=== PATIENT | female | born 1940 | race Caucasian/White ===

== ENCOUNTER 2020-02-15 11:32 | Outpatient (CLI) | payer MEDICARE, SELFPAY ==
--- NOTE | ~2020-02-15 | MM_ITS ---
EXAMINATION: MM screening [facility] w angela HISTORY: Screening mammogram TECHNIQUE: Craniocaudal and mediolateral oblique 3-D tomosynthesis images were obtained and synthetic 2-D images were generated. CAD analysis was submitted and interpreted. COMPARISON: 02/21/2018, 02/19/2017, 02/18/2016 bilateral digital screening mammogram examinations BREAST PARENCHYMAL COMPOSITION: There are scattered areas of fibroglandular density. FINDINGS: There is no evidence of suspicious mass, calcification, or architectural distortion to sugg est malignancy in either breast. There has been no suspicious interval change. IMPRESSION: 1. No mammographic evidence of malignancy. 2. Recommend routine screening mammography in one year. BI-RADS Category 1: Negative Reviewed, dictated and finalized at location A. 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
== END 2020-02-15 11:33 | disposition home or self-care (01) ==
PROVIDERS: PCP Internal Medicine; Visit Provider Internal Medicine
DX: Z12.31 Encounter for screening mammogram for malignant neoplasm of breast (principal)
CPT/HCPCS: 77063; 77067

== ENCOUNTER → 2021-03-24 15:02 | Outpatient (CLI) | payer MEDICARE, SELFPAY ==
--- NOTE | ~2021-03-24 | MM_ITS ---
EXAMINATION: MM screening [facility] BI w angela HISTORY: Screening mammogram TECHNIQUE: Craniocaudal and mediolateral oblique 3-D tomosynthesis images were obtained and synthetic 2-D images were generated. CAD analysis was submitted and interpreted. COMPARISON: 02/15/2020, 02/21/2018, 02/19/2017 BREAST PARENCHYMAL COMPOSITION: There are scattered areas of fibroglandular density. FINDINGS: There is no evidence of suspicious mass, calcification, or architectural distortion to sugg est malignancy in either breast. There has been no suspicious interval change. IMPRESSION: 1. No mammographic evidence of malignancy. 2. Recommend routine screening mammography in one year. BI-RADS Category 1: Negative Reviewed, dictated and finalized at location A. TREADER
== END ==
PROVIDERS: PCP Internal Medicine; Visit Provider Internal Medicine
DX: Z12.31 Encounter for screening mammogram for malignant neoplasm of breast (principal)
CPT/HCPCS: 77063; 77067

== ENCOUNTER → 2022-04-06 13:57 | Outpatient (CLI) | payer MEDICARE, SELFPAY ==
--- NOTE | ~2022-04-06 | MM_ITS ---
EXAMINATION: MM screening [facility] BI w angela HISTORY: Screening mammogram TECHNIQUE: Craniocaudal and mediolateral oblique 3-D tomosynthesis images were obtained and synthetic 2-D images were generated. CAD analysis was submitted and interpreted. COMPARISON: 03/24/2021, 02/15/2020, 02/21/2018 BREAST PARENCHYMAL COMPOSITION: There are scattered areas of fibroglandular density. FINDINGS: No suspicious mass, calcification, or architectural distortion are identified in either brenda ast to suggest malignancy. There has been no suspicious interval change. IMPRESSION: 1. No mammographic evidence of malignancy. 2. Recommend routine screening mammography in one year. BI-RADS Category 1: Negative Reviewed, dictated and finalized at location A. 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
== END ==
PROVIDERS: PCP Internal Medicine; Visit Provider Internal Medicine
DX: Z12.31 Encounter for screening mammogram for malignant neoplasm of breast (principal)
CPT/HCPCS: 77063; 77067

== ENCOUNTER 2022-11-15 12:28 | Emergency (ER) | payer MEDICARE, SELFPAY ==
--- NOTE | ~2022-11-15 | XR_ITS ---
XR ribs RT 2V DATE: 11/15/2022 12:59 INDICATION: Right lower rib injury, abdominal bruising TECHNIQUE: 4 views of right ribs COMPARISON: None FINDINGS: No right rib fracture or bone destruction is detected. The right lung is clear. No right pneumothorax or pleural effusion. Aortic arch calcification is note d. Status post cholecystectomy. IMPRESSION: No right rib fracture is noted Reviewed, dictated and finalized at location B.
[2022-11-15 12:42] VITALS: BP 106/48; PULSE 75; RESP 16; TEMP 37.1; O2SAT 100
--- NOTE | 2022-11-15 12:50 | ED.FALL ---
HPI - Fall General Chief Complaint: Back Pain/Injury Stated Complaint: Right Side Body Pain Time Seen by Provider: 11/15/22 12:33 Source: patient Mode of arrival: ambulatory Limitations: no limitations History of Present Illness HPI Narrative: Tanisha is an 81-year-old female patient presenting to the clinic today with complaints of right-sided rib pain/abdominal wall pain. She reports that she fell on Tuesday evening and landed on the tongue of a boat trailer. Has pain and bruising over the right lower ribs and the right upper abdomen. She is on Eliquis. She denies hitting her head or any loss of consciousness. She denies any neck pain. Related Data Home Medications Medication Instructions Recorded Confirmed amlodipine 10 mg tablet 10 mg PO DAILY 11/15/22 11/15/22 apixaban 5 mg tablet (Eliquis) 5 mg PO BID 11/15/22 11/15/22 carvedilol 6.25 mg tablet 6.25 mg PO DAILY 11/15/22 11/15/22 furosemide 20 mg tablet 20 mg PO DAILY 11/15/22 11/15/22 irbesartan 300 1 tablet PO DAILY 11/15/22 11/15/22 mg-hydrochlorothiazide 12.5 mg tablet levothyroxine 100 mcg tablet 100 mcg PO DAILY 11/15/22 11/15/22 rosuvastatin 40 mg tablet 40 mg PO DAILY 11/15/22 11/15/22 Allergies Allergy/AdvReac Type Severity Reaction Status Date / Time 1.PCN2.SULFA3.CLEOCIN4.DECLOMYCIN Allergy Unknown Other Uncoded 11/15/22 12:45 Review of Systems Review of Systems: Pertinent positives per HPI. Patient denies any fever, chills, rash, headache, visual changes, dizziness, cough, runny nose, sore throat, shortness of breath, chest pain, palpitations, nausea, vomiting, diarrhea, constipation, abdominal pain, or any urinary issues. PMFSH Comments At the time of my signature, I reviewed and agree with the nursing past medical, surgical, social, and family history. There is no relevant family history pertinent to the patient complaint. Exam Narrative: General: Well-developed, well nourished, in no apparent distress Head: Normocephalic, atraumatic. Cardio: Regular rate and rhythm, s1 and s2 normal, no murmur appreciated. Resp: Clear to auscultation bilaterally, no rhonchi, rales, wheezing or rubs. Extremities: No deformity, no edema, no cyanosis, capillary refill less than 2 seconds, peripheral pulses palpable and strong. Integumentary: [place], warm, and dry, hematoma with old bruising noted to the right upper abdomen, old bruising noted over the right lower ribs with discomfort to palpation without obvious step-off deformity Course Course Emergency Course: Portions of this record may have been created with voice recognition software. Level of Care: Express Care Visit Vital Signs Vital signs: Vital Signs Temperature 37.1 C 11/15/22 12:42 Pulse Rate 75 11/15/22 12:42 Respiratory Rate 16 11/15/22 12:42 Blood Pressure 106/48 L 11/15/22 12:42 Pulse Oximetry 100 11/15/22 12:42 Oxygen Delivery Room Air 11/15/22 12:42 Temperature 37.1 C 11/15/22 12:42 Pulse Rate 75 11/15/22 12:42 Respiratory Rate 16 11/15/22 12:42 Blood Pressure 106/48 L 11/15/22 12:42 Pulse Oximetry 100 11/15/22 12:42 Oxygen Delivery Room Air 11/15/22 12:42 Vital signs reviewed MDM - Fall MDM Narrative Medical decision making narrative: At the time of visit patient is resting comfortably on exam table. I suspect patient has a hematoma and right rib contusion. X-ray of the right ribs was negative. Supportive measures were discussed with the patient she voiced understanding discharge instructions and agrees to treatment plan. Differential Diagnosis Differential diagnosis: Likely other (Rib contusion, rib fracture, hematoma, ecchymosis) Discharge Plan Discharge Clinical Impression: Hematoma of abdominal wall Qualifiers: Encounter type: initial encounter Qualified Code(s): S30.1XXA - Contusion of abdominal wall, initial encounter Contusion of rib on right side Qualifiers: Encounter type: initial encounter Qualified
== END 2022-11-15 13:50 | disposition home or self-care (01) ==
PROVIDERS: Emergency Provider Nurse Practitioner Family; PCP Internal Medicine
DX: S30.1XXA Contusion of abdominal wall, initial encounter (principal); S20.211A Contusion of right front wall of thorax, initial encounter; W19.XXXA Unspecified fall, initial encounter; I48.91 Unspecified atrial fibrillation; E78.00 Pure hypercholesterolemia, unspecified; I10 Essential (primary) hypertension; K21.9 Gastro-esophageal reflux disease without esophagitis; E03.9 Hypothyroidism, unspecified; Q24.9 Congenital malformation of heart, unspecified
CPT/HCPCS: 71100; 99213; G0463

== ENCOUNTER 2022-11-20 13:09 | Emergency (ER) | payer MEDICARE, SELFPAY ==
[2022-11-20 13:32] VITALS: BP 114/36; PULSE 68; RESP 12; TEMP 37; O2SAT 100
--- NOTE | 2022-11-20 14:06 | ED.FEMALEGU ---
HPI - Female Genitourinary General Chief complaint: Urogenital-Female Stated complaint: UTI Time Seen by Provider: 11/20/22 14:06 Source: patient, RN notes reviewed and old records reviewed Mode of arrival: ambulatory Limitations: no limitations History of Present Illness HPI Narrative: 82-year-old female who presents to [facility] with complaints urinary tract infection symptoms of burning with urination, urgency and frequency for the past 3 days. Patient reports that she has history of past UTI;s. Patient reports that her doctor gives her a medication that starts with letter C that usually takes care of her symptoms. Patient reports that she has taken some AZO for her symptoms.Patient denies any fevers, chills or body aches, has not experienced any nausea or vomiting denies any vaginal discharge or itching. MD elicited complaint: UTI Pertinent past history: other (pat UTI's) Onset (ago): day(s) (3) Location of symptoms: perineum Severity: moderate Quality of pain: burning Vaginal discharge: none Treatment prior to arrival: OTC urinary analgesics Related Data Home Medications Medication Instructions Recorded Confirmed amlodipine 10 mg tablet 10 mg PO DAILY 11/15/22 11/15/22 apixaban 5 mg tablet (Eliquis) 5 mg PO BID 11/15/22 11/15/22 carvedilol 6.25 mg tablet 6.25 mg PO DAILY 11/15/22 11/15/22 furosemide 20 mg tablet 20 mg PO DAILY 11/15/22 11/15/22 irbesartan 300 1 tablet PO DAILY 11/15/22 11/15/22 mg-hydrochlorothiazide 12.5 mg tablet levothyroxine 100 mcg tablet 100 mcg PO DAILY 11/15/22 11/15/22 rosuvastatin 40 mg tablet 40 mg PO DAILY 11/15/22 11/15/22 Allergies Allergy/AdvReac Type Severity Reaction Status Date / Time ciprofloxacin [From Cipro] Allergy Other Verified 11/20/22 14:13 1.PCN2.SULFA3.CLEOCIN4.DECLOMYCIN Allergy Unknown Other Uncoded 11/15/22 12:45 Review of Systems Review of Systems: CONSTITUTIONAL: Denies fever, chills, or sweats. CARDIOVASCULAR: Denies chest pain, palpitations, or edema. RESPIRATORY: Denies cough or dyspnea. GASTROINTESTINAL: Denies abdominal pain, nausea, vomiting, or diarrhea. GENITOURINARY: Reports dysuria, frequency, urgency. Denies flank pain or hematuria. SKIN: Denies rash or itching. MUSCULOSKELETAL: Denies back pain or myalgia. Denies CVA tenderness NEUROLOGIC: Denies headache All systems reviewed & are unremarkable except as noted in HPI and below PMFSH Past Medical History Medical History (Updated 11/22/22 @ 10:54 by Chani Sandoval NP) Arthritis Atrial fibrillation CAD (coronary artery disease) GERD (gastroesophageal reflux disease) Hyperlipidemia Hypertension Hypothyroidism Spinal stenosis Urinary tract infection Surgical History Surgical History (Updated 11/22/22 @ 10:53 by Chani Sandoval NP) H/O arthroscopy of right knee History of hysterectomy History of tonsillectomy Social History Social History (Updated 11/22/22 @ 10:55 by Chani Sandoval NP) Smoking status: Never smoker Alcohol intake: never Substance use: never Substance use type: does not use Occupation/Education: retired Gender identity (if verbalized by the patient): Female Comments At time of signature, agree with nursing past medical, surgical, social and family history. There is no relevant family history pertinent to the presenting complaint Exam Narrative: GENERAL: Well-appearing, well-nourished, and in no acute distress. HEAD: Normocephalic, atraumatic. NECK: Supple.no lymphadenopathy CHEST: Clear to auscultation. No respiratory distress.SAO2 100% on room air HEART: Regular rate and rhythm. No murmur heard. Normal peripheral pulses. ABDOMEN: Soft, nontender to palpation, nondistended, normal active bowel sounds. No CVA tenderness, urinary burning with urgency and frequency EXTREMITIES: Normal range of motion. No edema. SKIN: Warm, dry, no rash. NEURO: No focal deficits. Alert and oriented x3. Course Course Emergency Course: Trudy
== END 2022-11-20 14:25 | disposition home or self-care (01) ==
PROVIDERS: Emergency Provider Registered Nurse; PCP Internal Medicine
DX: N39.0 Urinary tract infection, site not specified (principal); B96.20 Unspecified Escherichia coli [E. coli] as the cause of diseases classified elsewhere; M19.90 Unspecified osteoarthritis, unspecified site; I48.91 Unspecified atrial fibrillation; I25.10 Atherosclerotic heart disease of native coronary artery without angina pectoris; K21.9 Gastro-esophageal reflux disease without esophagitis; E78.5 Hyperlipidemia, unspecified; I10 Essential (primary) hypertension; E03.9 Hypothyroidism, unspecified; M48.00 Spinal stenosis, site unspecified
CPT/HCPCS: 81003; 87077; 87086; 87186; 99213; G0463

== ENCOUNTER 2023-02-17 11:37 | Emergency (ER) | payer MEDICARE, SELFPAY ==
--- NOTE | 2023-02-17 11:40 | ED.EYEPROB ---
HPI - Eye Problem General Chief complaint: Eye Problems Stated complaint: Right Eye Irritation Time Seen by Provider: 02/17/23 11:39 Source: patient Mode of arrival: ambulatory Limitations: no limitations History of Present Illness HPI Narrative: Patient is an 82-year-old female that presents with right eye irritation for 2 days. Patient states she feels like she scratched her eye and her sleep. Does have history of macular degeneration and her right eye has chronically dry. Denies any pain or changes in vision. Related Data Home Medications Medication Instructions Recorded Confirmed amlodipine 10 mg tablet 10 mg PO DAILY 11/15/22 02/17/23 apixaban 5 mg tablet (Eliquis) 5 mg PO BID 11/15/22 02/17/23 carvedilol 6.25 mg tablet 6.25 mg PO DAILY 11/15/22 02/17/23 furosemide 20 mg tablet 20 mg PO DAILY 11/15/22 02/17/23 irbesartan 300 1 tablet PO DAILY 11/15/22 02/17/23 mg-hydrochlorothiazide 12.5 mg tablet levothyroxine 100 mcg tablet 100 mcg PO DAILY 11/15/22 02/17/23 rosuvastatin 40 mg tablet 40 mg PO DAILY 11/15/22 02/17/23 Allergies Allergy/AdvReac Type Severity Reaction Status Date / Time ciprofloxacin [From Cipro] Allergy Other Verified 02/17/23 11:55 clindamycin [From Cleocin] Allergy Unknown Verified 02/17/23 12:11 demeclocycline Allergy Unknown Verified 02/17/23 12:11 [From Declomycin] Penicillins Allergy Unknown Verified 02/17/23 12:11 Sulfa (Sulfonamide Allergy Unknown Verified 02/17/23 12:11 Antibiotics) Review of Systems Review of Systems: All systems reviewed & are unremarkable except as noted in HPI and below Constitutional: Constitutional: Denies body ache(s), Denies fever(s), Denies headache(s), Denies malaise and Denies weakness Eyes: Eyes: Denies blurry vision, Denies eye discharge, Reports irritation, Denies itchy eyes, Denies loss of vision and Denies eye pain ENT: Denies otalgia, Denies headache(s), Denies nasal discharge, Denies sinus pain and Denies sore throat Cardiovascular: Cardiovascular: Denies chest pain, Denies irregular heart rhythm and Denies dyspnea Respiratory: Respiratory: Denies dyspnea Gastrointestinal: Gastrointestinal: Denies abdominal pain, Denies diarrhea, Denies nausea and Denies vomiting Musculoskeletal: Musculoskeletal: Denies back pain, Denies myalgias and Denies arthralgias Integumentary/Breasts: Skin/Breast: Denies pruritus and Denies rash Neurologic: Denies headache(s), Denies loss of vision and Denies weakness Psychiatric: Psychiatric: Reports no additional psychiatric complaints Allergic/Immunologic: Allergic/Immunologic: Reports itchy eyes PMFSH Past Medical History Medical History Arthritis Atrial fibrillation CAD (coronary artery disease) GERD (gastroesophageal reflux disease) Hyperlipidemia Hypertension Hypothyroidism Spinal stenosis Urinary tract infection Surgical History Surgical History H/O arthroscopy of right knee History of hysterectomy History of tonsillectomy Social History Social History Smoking status: Never smoker Alcohol intake: never Substance use: never Substance use type: does not use Occupation/Education: retired Gender identity (if verbalized by the patient): Female Comments At time of signature, agree with nursing past medical, surgical, social and family history. There is no relevant family history pertinent to the presenting complaint. Exam Const: General: cooperative, healthy appearing, comfortable, no acute distress and well nourished Nutritional Appearance: well nourished Orientation/consciousness: patient oriented x3 Limitations: no limitations HENMT: Head: normal to inspection, normocephalic and atraumatic Ears: external ears normal Face/Nose/Sinus: Normal external nose present, normal facial exam and face symmetr
[2023-02-17 11:50] VITALS: BP 144/51; PULSE 67; RESP 14; TEMP 36.8; O2SAT 99
== END 2023-02-17 12:42 | disposition home or self-care (01) ==
PROVIDERS: Emergency Provider Nurse Practitioner Family; PCP Internal Medicine
DX: H57.11 Ocular pain, right eye (principal); M19.90 Unspecified osteoarthritis, unspecified site; I48.91 Unspecified atrial fibrillation; I25.10 Atherosclerotic heart disease of native coronary artery without angina pectoris; K21.9 Gastro-esophageal reflux disease without esophagitis; E78.5 Hyperlipidemia, unspecified; I10 Essential (primary) hypertension; E03.9 Hypothyroidism, unspecified; M48.00 Spinal stenosis, site unspecified; Z79.01 Long term (current) use of anticoagulants
CPT/HCPCS: 99213; A9270; G0463

== ENCOUNTER 2023-03-15 08:33 | Emergency (ER) | payer MEDICARE, SELFPAY ==
[2023-03-15 08:53] VITALS: BP 138/43; PULSE 70; RESP 16; TEMP 36.6; O2SAT 99
--- NOTE | 2023-03-15 08:56 | ED.FEMALEGU ---
HPI - Female Genitourinary General Chief complaint: Urogenital-Female Stated complaint: urinary issue Time Seen by Provider: 03/15/23 08:56 Source: patient Mode of arrival: ambulatory Limitations: no limitations History of Present Illness HPI Narrative: 82-year-old female presents with complaint of dysuria, urgency for 3 days. Symptoms getting progressively worse, hematuria overnight. No back or abdominal pain. Denies nausea vomiting. No fever. All systems reviewed and negative except as noted above. Related Data Home Medications Medication Instructions Recorded Confirmed amlodipine 10 mg tablet 10 mg PO DAILY 11/15/22 03/15/23 apixaban 5 mg tablet (Eliquis) 5 mg PO BID 11/15/22 03/15/23 carvedilol 6.25 mg tablet 6.25 mg PO DAILY 11/15/22 03/15/23 furosemide 20 mg tablet 20 mg PO DAILY 11/15/22 03/15/23 irbesartan 300 1 tablet PO DAILY 11/15/22 03/15/23 mg-hydrochlorothiazide 12.5 mg tablet levothyroxine 100 mcg tablet 100 mcg PO DAILY 11/15/22 03/15/23 rosuvastatin 40 mg tablet 40 mg PO DAILY 11/15/22 03/15/23 Allergies Allergy/AdvReac Type Severity Reaction Status Date / Time ciprofloxacin [From Cipro] Allergy Other Verified 03/15/23 08:55 clindamycin [From Cleocin] Allergy Unknown Verified 03/15/23 08:55 demeclocycline Allergy Unknown Verified 03/15/23 08:55 [From Declomycin] Penicillins Allergy Unknown Verified 03/15/23 08:55 Sulfa (Sulfonamide Allergy Unknown Verified 03/15/23 08:55 Antibiotics) Review of Systems Review of Systems: CONSTITUTIONAL: Denies fever, chills, or sweats. EYES: Denies visual changes, redness, or discharge. ENT: Denies rhinorrhea, congestion, sore throat, or otalgia. CARDIOVASCULAR: Denies chest pain, palpitations, or edema. RESPIRATORY: Denies cough or dyspnea. GASTROINTESTINAL: Denies abdominal pain, nausea, vomiting, or diarrhea. GENITOURINARY: Reports dysuria, urgency, hematuria. SKIN: Denies rash or itching. MUSCULOSKELETAL: Denies back pain, joint pain, or myalgia. NEUROLOGIC: Denies headache, numbness, or weakness. PSYCHIATRIC: Denies anxiety or depression. All other systems reviewed are negative, except as documented in HPI. [facility] Past Medical History Medical History Arthritis Atrial fibrillation CAD (coronary artery disease) GERD (gastroesophageal reflux disease) Hyperlipidemia Hypertension Hypothyroidism Spinal stenosis Urinary tract infection Surgical History Surgical History H/O arthroscopy of right knee History of hysterectomy History of tonsillectomy Social History Social History Smoking status: Never smoker Alcohol intake: never Substance use: never Substance use type: does not use Occupation/Education: retired Gender identity (if verbalized by the patient): Female Comments At time of signature, agree with nursing past medical, surgical, social and family history. There is no relevant family history pertinent to the presenting complaint. Exam Narrative: GENERAL: This is a well-nourished, well-developed patient, in no apparent distress. HEAD: normocephalic, atraumatic. EYES: PERRL. Sclera clear/white. Vision is grossly intact. EARS: External ears normal NOSE: External nose normal NECK: Neck supple, non-tender without lymphadenopathy, masses or thyromegaly. CARDIOVASCULAR: Regular rate and rhythm without murmurs, gallops, or rubs. RESPIRATORY: Clear to auscultation. Breath sounds equal bilaterally. No wheezes, rales, or rhonchi. SKIN: warm, Dry, intact with no suspicious lesions or rash, good texture and turgor. NEURO: awake, alert, and oriented to person, place and time. There were no obvious focal neurologic abnormalities. EXTREMITIES: No joint tenderness, effusion, or edema noted. No calf tenderness. Negative Homans sign bilaterally.
== END 2023-03-15 09:20 | disposition home or self-care (01) ==
PROVIDERS: Emergency Provider Nurse Practitioner Family; PCP Internal Medicine
DX: N39.0 Urinary tract infection, site not specified (principal); I25.10 Atherosclerotic heart disease of native coronary artery without angina pectoris; I48.91 Unspecified atrial fibrillation; I10 Essential (primary) hypertension; E03.9 Hypothyroidism, unspecified
CPT/HCPCS: 81003; 87077; 87086; 87186; 99213; G0463

== ENCOUNTER 2023-04-14 09:48 | Emergency (ER) | payer MEDICARE, SELFPAY ==
[2023-04-14 10:15] VITALS: BP 140/44; PULSE 70; RESP 14; TEMP 36.2; O2SAT 100
--- NOTE | 2023-04-14 10:36 | ED.GENADULT ---
HPI - General Adult General Chief complaint: Urogenital-Female Stated complaint: UTI Source: patient, RN notes reviewed and old records reviewed Mode of arrival: ambulatory Limitations: no limitations History of Present Illness HPI narrative: 82-year-old female presents to [facility] with complaints urinary frequency, constant feeling of bladder being full, and hematuria this started in February. Patient seen here in March 15 and diagnosed with UTI patient states took antibiotics and followed up with primary care physician who told her urine was clear. Patient states symptoms have never completely resolved. MD complaint: uti symptoms Onset (ago): week(s) (4) Related Data Home Medications Medication Instructions Recorded Confirmed amlodipine 10 mg tablet 10 mg PO DAILY 11/15/22 04/14/23 apixaban 5 mg tablet (Eliquis) 5 mg PO BID 11/15/22 04/14/23 carvedilol 6.25 mg tablet 6.25 mg PO DAILY 11/15/22 04/14/23 furosemide 20 mg tablet 20 mg PO DAILY 11/15/22 04/14/23 levothyroxine 100 mcg tablet 100 mcg PO DAILY 11/15/22 04/14/23 rosuvastatin 40 mg tablet 40 mg PO DAILY 11/15/22 04/14/23 irbesartan 150 mg tablet 150 mg PO DAILY 04/14/23 04/14/23 Allergies Allergy/AdvReac Type Severity Reaction Status Date / Time ciprofloxacin [From Cipro] Allergy Other Verified 04/14/23 10:25 clindamycin [From Cleocin] Allergy Unknown Verified 04/14/23 10:25 demeclocycline Allergy Unknown Verified 04/14/23 10:25 [From Declomycin] Penicillins Allergy Unknown Verified 04/14/23 10:25 Sulfa (Sulfonamide Allergy Unknown Verified 04/14/23 10:25 Antibiotics) Review of Systems Constitutional: Constitutional: Reports no additional constitutional complaints, Denies body ache(s), Denies chills, Denies fatigue, Denies fever(s) and Denies headache(s) Eyes: Eyes: Reports no additional eye complaints and Denies blurry vision ENT: Reports system reviewed and no additional complaints, except as documented, Denies vertigo, Denies dizziness, Denies ear discharge, Denies otalgia, Denies facial pain, Denies headache(s), Denies nasal congestion, Denies nasal discharge, Denies sinus pain, Denies sinus pressure and Denies sore throat Cardiovascular: Cardiovascular: Reports no additional cardiovascular complaints, Denies chest pain, Denies chest pain at rest, Denies rapid heart rate and Denies dyspnea Respiratory: Respiratory: Reports no additional respiratory complaints, Denies chest congestion, Denies cough, Denies pain on inspiration, Denies pain with cough and Denies dyspnea Gastrointestinal: Gastrointestinal: Denies abdominal pain, Denies diarrhea, Denies nausea and Denies vomiting Genitourinary: Genitourinary: Reports hematuria, Reports nocturia and Reports urinary urgency Integumentary/Breasts: Skin/Breast: Denies rash Neurologic: Reports system reviewed and no additional complaints, except as documented, Denies vertigo, Denies dizziness and Denies headache(s) Endocrine: Endocrine: Denies fatigue [facility] Past Medical History Medical History Arthritis Atrial fibrillation CAD (coronary artery disease) GERD (gastroesophageal reflux disease) Hyperlipidemia Hypertension Hypothyroidism Spinal stenosis Urinary tract infection Surgical History Surgical History H/O arthroscopy of right knee History of hysterectomy History of tonsillectomy Social History Social History Smoking status: Never smoker Alcohol intake: never Substance use: never Substance use type: does not use Occupation/Education: retired Gender identity (if verbalized by the patient): Female Comments At the time of my signature, I reviewed and agree with the nursing past medical, surgical, social, and family history. There is no relevant family history pertinent to the patient complaint. Ex
== END 2023-04-14 10:50 | disposition home or self-care (01) ==
PROVIDERS: Emergency Provider Registered Nurse; PCP Internal Medicine
DX: N30.01 Acute cystitis with hematuria (principal); I25.10 Atherosclerotic heart disease of native coronary artery without angina pectoris; E78.5 Hyperlipidemia, unspecified; I10 Essential (primary) hypertension; I48.91 Unspecified atrial fibrillation; Z79.01 Long term (current) use of anticoagulants; Z79.899 Other long term (current) drug therapy
CPT/HCPCS: 81003; 87077; 87086; 87186; 99213; G0463

== ENCOUNTER → 2023-04-27 13:39 | Outpatient (CLI) | payer MEDICARE, SELFPAY ==
--- NOTE | ~2023-04-27 | MM_ITS ---
EXAMINATION: MM screening [facility] BI w angela HISTORY: Screening mammogram TECHNIQUE: Craniocaudal and mediolateral oblique 3-D tomosynthesis images were obtained and synthetic 2-D images were generated. CAD analysis was submitted and interpreted. COMPARISON: 04/06/2022, 03/2021, 02/15/2020 bilateral screening mammogram examinations BREAST PARENCHYMAL COMPOSITION: There are scattered areas of fibroglandular density. FINDINGS: There is no evidence of suspicious mass, calcification, or architectural distortion to sugg est malignancy in either breast. There has been no suspicious interval change. IMPRESSION: 1. No mammographic evidence of malignancy. 2. Recommend routine screening mammography in one year. BI-RADS Category 1: Negative Reviewed, dictated and finalized at location A. [facility]
== END ==
PROVIDERS: PCP Internal Medicine; Visit Provider Internal Medicine
DX: Z12.31 Encounter for screening mammogram for malignant neoplasm of breast (principal)
CPT/HCPCS: 77063; 77067

== ENCOUNTER 2024-03-16 08:22 | Emergency (ER) | payer MEDICARE, SELFPAY ==
--- NOTE | 2024-03-16 08:35 | ED.FEMALEGU ---
HPI - Female Genitourinary General Chief complaint: Urogenital-Female Stated complaint: UTI Time Seen by Provider: 03/16/24 08:35 Source: patient Mode of arrival: ambulatory Limitations: no limitations History of Present Illness HPI Narrative: Tanisha is an 83-year-old female patient presenting to the clinic today with complaints of a possible UTI. She reports she is having burning with urination that started approximately 1 week ago. Thinks she may have a urinary tract infection. Last urinary tract infection was in March. She does see a urologist and has a scheduled appointment September. She denies any fevers, chills, flank pain or abdominal pain. Related Data Home Medications ?Medication ?Instructions ?Recorded ?Confirmed ?Last Taken ?Type amlodipine 10 mg tablet 10 mg PO DAILY 11/15/22 04/14/23 Unknown History apixaban 5 mg tablet (Eliquis) 5 mg PO BID 11/15/22 04/14/23 Unknown History carvedilol 6.25 mg tablet 6.25 mg PO DAILY 11/15/22 04/14/23 Unknown History furosemide 20 mg tablet 20 mg PO DAILY 11/15/22 04/14/23 Unknown History levothyroxine 100 mcg tablet 100 mcg PO DAILY 11/15/22 04/14/23 Unknown History rosuvastatin 40 mg tablet 40 mg PO DAILY 11/15/22 04/14/23 Unknown History irbesartan 150 mg tablet 150 mg PO DAILY 04/14/23 04/14/23 Unknown History Allergies Allergy/AdvReac Type Severity Reaction Status Date / Time ciprofloxacin (From Cipro) Allergy Other Verified 03/16/24 08:37 clindamycin (From Cleocin) Allergy Unknown Verified 03/16/24 08:37 demeclocycline (From Allergy Unknown Verified 03/16/24 08:37 Declomycin) Penicillins Allergy Unknown Verified 03/16/24 08:37 Sulfa (Sulfonamide Allergy Unknown Verified 03/16/24 08:37 Antibiotics) Review of Systems Review of Systems: Pertinent positives per HPI. Patient denies any fever, chills, rash, headache, visual changes, dizziness, cough, runny nose, sore throat, shortness of breath, chest pain, palpitations, nausea, vomiting, diarrhea, constipation, abdominal pain PMFSH Past Medical History Medical History CAD (coronary artery disease) Arthritis Spinal stenosis Hypothyroidism GERD (gastroesophageal reflux disease) Hyperlipidemia Hypertension Atrial fibrillation Urinary tract infection Surgical History Surgical History H/O arthroscopy of right knee History of hysterectomy History of tonsillectomy Social History Social History Smoking status: Never smoker Alcohol intake: never Substance use: never Substance use type: does not use Occupation/Education: retired Gender identity (if verbalized by the patient): Female Comments At the time of my signature, I reviewed and agree with the nursing past medical, surgical, social, and family history. There is no relevant family history pertinent to the patient complaint. Exam Narrative: General: Well-developed, well nourished, in no apparent distress. Head: Normocephalic, atraumatic. Cardio: Regular rate and rhythm, s1 and s2 normal, no murmur appreciated. Resp: Clear to auscultation bilaterally, no rhonchi, rales, wheezing or rubs. Abdomen: Soft, pliable, bowel sounds present in all quadrants, non-tender to palpation, no organomegly, no CVAT tenderness. Course Course Emergency Course: Portions of this record may have been created with voice recognition software. Level of Care: Express Care Visit Vital Signs Vital signs: Vital signs reviewed MDM - Female Genitourinary MDM Narrative Medical decision making narrative: At the time of visit patient is resting comfortably on the exam table. Patient appears to be nontoxic. Labs: Urinalysis shows leukocytes, blood, nitrates, and protein. We will send for culture. Plan: Patient has multiple drug allergies. Past urine cultures have been sensitive to Macrobid. Will place the patient on Macrobid as patient has a UTI. Supportive measures were discussed with the patient and they voiced understanding discharge instructions and agrees to treatment plan. Return precautions reviewed Differential Diagnosis Differential diagnosis: Likely urinary tract infection and cystitis Discharge Plan Discharge Clinical Impression: Urinary tract infection Qualifiers: Urinary tract infection type: acute cystitis Hematuria presence: without hematuria Qualified Code(s): N30.00 - Acute cystitis without hematuria Patient Disposition: Home, Self-Care Condition: Stable Instructions: Antibiotic Form, Urinary Tract Infection in Older Adults (ED) Additional Instructions: Urinalysis positive for leukocytes, nitrates, protein, and blood. Take Macrobid as prescribed Increase fluids and stay well hydrated Wipe front to back. May use wet wipes. Avoid tub baths If sexually active- pee before and after intercourse. Wear cotton panties Avoid tight clothing up against the genitals Follow up with your PCP in 1 week if symptoms persist. Patient Language: Nepali Prescriptions: New nitrofurantoin monohyd/m-cryst [Macrobid] 100 mg capsule 100 mg PO Q12H 7 Days Qty: 14 0RF Rx Instructions: must administer with a meal/food No Action carvedilol 6.25 mg tablet 6.25 mg PO DAILY levothyroxine 100 mcg tablet 100 mcg PO DAILY amlodipine 10 mg tablet 10 mg PO DAILY furosemide 20 mg tablet 20 mg PO DAILY rosuvastatin 40 mg tablet 40 mg PO DAILY Eliquis 5 mg tablet 5 mg PO BID irbesartan 150 mg tablet 150 mg PO DAILY cefuroxime axetil 500 mg tablet 500 mg PO BID Qty: 14 0RF phenazopyridine [Pyridium] 200 mg tablet 200 mg PO TID PRN (Reason: pain) Qty: 6 0RF cefuroxime axetil 500 mg tablet 500 mg PO BID 7 Days Qty: 14 0RF Follow-up/Referrals: Jaison,Barrett Schuster MD [Primary Care Provider] - Time of Disposition: 08:50 Quality NIHSS Nursing Documentation ED NIHSS nursing documentation: reviewed/agree
[2024-03-16 08:50] VITALS: BP 149/77; PULSE 75; RESP 16; TEMP 36.7; O2SAT 99
[2024-03-16 08:51] LABS: EDUAAPPEAR Cloudy; EDUABILI Negative (Negative); EDUABLOOD 3+ (Negative); EDUACOLOR1 Yellow; EDUAGLUCOSE Negative (Negative); EDUAKETONE Negative (Negative); EDUALEUKO 2+ (Negative); EDUANITRATE Positive (Negative); EDUAPROTEIN 3+ (Negative); EDUASPGRAVITY 1.025; EDUAUROBILI 0.2
== END 2024-03-16 08:55 | disposition home or self-care (01) ==
PROVIDERS: Emergency Provider Nurse Practitioner Family; PCP Internal Medicine
DX: N30.00 Acute cystitis without hematuria (principal); I25.10 Atherosclerotic heart disease of native coronary artery without angina pectoris; I10 Essential (primary) hypertension; E78.5 Hyperlipidemia, unspecified; I48.91 Unspecified atrial fibrillation; E03.9 Hypothyroidism, unspecified; K21.9 Gastro-esophageal reflux disease without esophagitis; M48.00 Spinal stenosis, site unspecified; M19.90 Unspecified osteoarthritis, unspecified site
CPT/HCPCS: 81003; 87086; 99213; G0463

== ENCOUNTER 2024-04-28 10:10 | Outpatient (CLI) | payer MEDICARE, SELFPAY ==
--- NOTE | ~2024-04-28 | MM_ITS ---
EXAMINATION: MM screening everett BI w angela HISTORY: Screening TECHNIQUE: Craniocaudal and mediolateral oblique 3-D tomosynthesis images were obtained and synthetic 2-D images were generated. CAD analysis was submitted and interpreted. COMPARISON: Comparison to multiple prior studies sequentially, with oldest reviewed study dated 04/2016. BREAST PARENCHYMAL COMPOSITION: Not dense: There are scattered areas of fibroglandular density. FINDINGS: There is no evidence of suspicious mass, calcification, or architectural distortion to sugg est malignancy in either breast. There has been no suspicious interval change. IMPRESSION: 1. No mammographic evidence of malignancy. 2. Recommend routine screening mammography in one year. BI-RADS Category 1: Negative Reviewed, dictated and finalized at location B. 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
--- OUTSIDE RECORDS SUMMARY | 2024-04-28 10:14 | XMS_ITS ---
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 Name Role Phone Brendon Patelbbir Primary Care Provider Allergies Allergen (clinical drug ingredient) Drug/Non Drug Allergy documented on EMR Reaction Allergy Type Onset Date Status Substance with penicillin structure and antibacterial mechanism of action (substance) Penicillins (uncoded) 11/21/2014- Allergy Active Substance with sulfonamide structure and antibacterial mechanism of action (substance) Sulfa Antibiotics (uncoded) 11/21/2014- Allergy Active clindamycin Clindamycin 11/21/2014- Drug Allergy Act cristhian benazepril Benazepril 11/21/2014- Drug Allergy Activ e Demeclocycline 11/21/2014- Drug Allergy Ac tive Ciprofloxacin 11/21/2014- Drug Allergy Act cristhian REASON FOR VISIT AWV and ACP, F/U HTN Medications Medication SIG (Take, Route, Frequency, Duration) Notes Start Date End Date Status Estradiol 0.1 MG/GM 1 _insert Vaginal Tw o times a Week Active Eliquis 5 MG 1 tablet Orally Twic e a day Active Furosemide 20 MG 1 tablet Orally Thre e times a week Active CALCIUM MAGNESIUM & ZINC Active Aspirin Low Dose 81MG 1 tablet Orally On ce a day ALBERTINA- 10/21/2011 Active Cranberry 200 MG 1 cap Twice a day Active Vagisil Active Multivitamin/Iron Ac tive Crestor 20MG 1 tablet in PM PO BEDTIME ALBERTINA- Not-Taking Sular 17MG 1 tablet Orally DAILY [facility]- Not-Taking Metoprolol Succinate ER 25 MG 1 tablet Orally Once a day [facility]- Not-Taking Doxycycline Hyclate 100 MG 1 capsule Ora lly every 12 hrs for 7 days 02/18/2017 Not-Taking Fish Oil 1200 MG 1 capsule Orally Onc e a day Not-Taking Ceftin 250 MG 1 tablet Orally Twic e a day for 7 days 01/31/2017 Not-Taking Tessalon Perles 100 MG 1 capsule as need ed Orally Three times a day for 7 days 02/18/2017 Not-Taking Nitrofurantoin Monohyd Macro 100 MG One Orally Twice a day for 7 days 01/08/2021 Not-Taking Ceftin 250 MG 1 tablet Orally ever y 12 hrs for 7 days 12/17/2021 Not-Taking Vagifem 10MCG 1 tablet Vaginal 3X-WEEKLY [facility] [place] Not-Taking Macrobid 100 MG 1 capsule Orally BID for 7 days 01/28/2021 Not-Taking Ceftin 250 MG 1 tablet Orally ever y 12 hrs for 7 days 12/29/2020 Not-Taking Rosuvastatin Calcium 40 MG 1 tablet at b edtime Orally Once a day Active PreserVision/Lutein 1 capsule Orally Twi ce a day [facility]- 08/08/2013 Active Levothyroxine Sodium 100 MCG 1 tablet in the morning on an empty stomach Orally Once a day for 90 days Active Tylenol 325 MG 2 tablets Orally twi ce a day Active Baclofen 10 MG 1 tablet Orally Twice a day for 30 days As needed 02/28/2024 Active Calcium 600+D3 600-400 MG-UNIT 1 tablet Orally Twice a day [facility]- 10/21/2011 Active Carvedilol 6.25 MG 1 tablet with food Orally Twice a day Active amLODIPine Besylate 10 MG 1 tablet Orall y Once a day Active Social History Tobacco Use: Social History Observation Description Date Details (start date - stop date) Never Smoker NA - NA Tobacco Use/Smoking Question Answer Notes Are you a nonsmoker Additional Findings: Tobacco Non-User Current no n-smoker Alcohol Screen (Audit-C) Question Answer Notes Did you have a drink containing alcohol in the p ast year? No Points 0 Interpretation Negative Tobacco use other than smoking: Question Answer Notes Are you an other tobacco user? No Problems Problem Type SNOMED Code ICD Code Onset Dates Problem Status W/U Status Risk Notes Problem Hypertensive heart AND chronic kidney disease with congestive heart failure ([id number]) Hyp hrt & chr kdny dis w hrt fail and stg 1-4/unsp chr kdny (I13.0) Active confirmed Problem Heart failure (27346546) Acute on chronic heart failure, unspecified heart failure type (I50.9) Active confirmed Vital Signs Temperature 97.6 degrees Fahrenheit 04/13/19 25 Blood pressure systolic 134 mm Hg 04/13/19 25 Blood pressure diastolic 70 mm Hg 025 Heart Rate 71 /min 04/13/2024 Respiratory Rate 16 /min 04/13/2024 Height 62 in 04/13/2024 Weight 136 lbs 04/13/2024 BMI 24.87 kg/m2 04/13/2024 Oximetry 97 % 04/13/2024 ple Encounters Encounter Location Date Provider Diagnosis [address] [address] 04/13/2024 Barrett Patel Advance care plannin g Z71.89 ; Encounter for general adult medical examination without abnormal findings Z00.00 ; Essential (primary) hypertension I10 ; Mixed hyperlipidemia E78.2 ; Hyp hrt & chr kdny dis w hrt fail and stg 1-4/unsp chr kdny I13.0 ; Acute on chronic heart failure, unspecified heart failure type I50.9 ; CAD (coronary artery disease) I25.10 ; Unspecified hearing loss, unspecified ear H91.90 ; Gastro-esophageal reflux disease without esophagitis K21.9 and Hypothyroidism E03.9 Assessments Encounter Date Diagnosis (ICD Code) Assessment Notes Treatment Notes Treatment Clinical Notes Section Notes 04/13/2024 Advance care planning (ICD-10 - Z71.89) 04/13/2024 Encounter for general adult medical examination without abnormal findings (ICD-10 - Z00.00) 04/13/2024 Essential (primary) hypertension (ICD-10 - I10) High Blood Pressure: Care Instructions material was published 04/13/2024 Mixed hyperlipidemia (ICD-10 - E78.2) 04/13/2024 Hyp hrt & chr kdny dis w hrt fail and stg 1-4/unsp chr kdny (ICD-10 - I13.0) 04/13/2024 Acute on chronic heart failure, unspecified heart failure type (ICD-10 - I50.9) 04/13/2024 CAD (coronary artery disease) (ICD-10 - I25.10) 04/13/2024 Unspecified hearing loss, unspecified ear (ICD-10 - H91.90) 04/13/2024 Gastro-esophageal reflux disease without esophagitis (ICD-10 - K21.9) 04/13/2024 Hypothyroidism (ICD-10 - E03.9) Plan Of Treatment Treatment Notes Assessment Notes Essential (primary) hypertension High Bl ood Pressure: Care Instructions material was published Next Appt Details Follow Up: 1 Year, Reason: Provider Name:Barrett lopez, 07/23/2024 10:00:00 AM, [address] [facility], [facility], [place], [address], Progress Notes * MARILEE FIGUEREDO EDOB: (83 yo F)Acc No.[id number]:04/13/2024 Progress Note Patient: Eliza SHIRLEYSEEMA BONDMARIE Sander Provider: Iban Patel M.D. :1940 A ge:83 Y S ex:Female Date:04/13/2024 Address:[address] [place], [place] [id number] Subjective: * Chief Complaints: * 1 . AWV and ACP. 2. F/U HTN. * HPI: A dvance Care Planning (ACP): Advance Directive D oes your family or friends know what you want in an emergency situation or if you could not speak for yourself? Y es, I have a living will, Yes, I have a power of trademark attorney, W ould you like more information on advance directives? N o. A dvance Care Planning Statement A t least 16 minutes was spent with the patient and/or the patients caregiver/s on a voluntary, [id number] visit by the physician or other qualified healthcare professional to discuss advance care planning. This included the explanation and review of standard legal documents if any were completed. F all Risk Assessment: Fall Risk Screening W [facility] assistive device(s) do you use??None, D o you have trouble with your balance? N o, F all Risk Assessment: N o falls in the past year, A re you afraid of falling? N o. M edicare Annual Wellness Visit (AWV): [facility]. H ealth Status T he patient was asked to assess their own health status today: P syd feels well today, T he patient reports their health trend to be: P syd feels like their health is about the same, T he patient is most concerned about: - None. H ealth Risks T he patient identifies the following health risks: N o health risks identified. D iet T he patient describes their current diet as: B alanced diet. E xercise T he patient currently exercises: W eekly. A ctivities of Daily Living A DLs: T he patient is currently independent in all ADLs including bathing, dressing and walking, I ADLs: T he patient is currently independent in all IADLs including shopping, housekeeping, handling finances and taking medication. H ome Safety T he patient identifies the follow home safety risks: N o home safety risks identified. C ognitive Screening C ognitive Screening: N o cognitive deficits identified, M ini-Cog item recall: 3 out of 3. V ision Screening V ision Issues: W ears glasses/contacts. H earing Screening H earing Issues: N o hearing problems identified. A dvance Directives A dvance Directives: Shelley velarde has a durable power of trademark attorney. S ubstance Use Disorder Screening D o you use any illegal drugs or take any prescription medications that have not been prescribed to you? N o. O pioid Use T he patient is currently prescribed to opioids? N o. P syd Care Team: - - . * Medical History: H ypertension(benign), CAD(Coronary artery disease), GERD(Gastroesophageal reflux disease), Hearing loss,Note-Bilateral Hearing aids, Hyperlipidemia, Hypothyroidism, Low back pain, Osteoarthritis, Otosclerosis. * Family History: M igFamilyHx: Sibling-Heart disease. F ather: diagnosed with Unspecified heart disease.?Son(s): diagnosed with Diabetes mellitus without mention of complication, type II or unspecified type, not stated as uncontrolled, Unspecified essential hypertension. M marybeth aunt: diagnosed with Other malignant neoplasm of unspecified site in 2. S iblings: diagnosed with Unspecified essential hypertension, Unspecified heart disease. 4 brother(s) . 3 son(s) , 1 daughter(s) . .? Maternal Aunt: (2) Breast cancer Alzheimers: Mother, 3 Aunts, 1 out of 3 Uncles, 1 out of 4 brothers Heart Disease: 2 brothers of HD, Father with heart Attack. * Social History: T obacco Use: T obacco Use/Smoking A re you a n onsmoker, A dditional Findings: Tobacco Non-User C urrent non-smoker. T obacco use other than smoking A re you an other tobacco user? N o. M igSocialHx: M igSocialHx: Alcohol Use (ANS-No) ;Drug Use (ANS-No) ;Exposed to Second Hand Smoke (ANS-No) ;History of IV Drug Use (ANS-No) ;Lives In (ANS-Home) ;Lives With (ANS-Spouse) ;Smoking status (ANS-Never smoker) ;. D rugs/Alcohol: D rugs H ave you used drugs other than those for medical reasons in the past 12 months??No. A lcohol Screen (Audit-C) D id you have a drink containing alcohol in the past year? N o, P oints 0 , I nterpretation N egative. C affeine I ntake: 2 -3 cups per day. D o you smoke marijuana?: Denies. Do you drink alcohol?: No. * Medications: T aking Vagisil , Taking Cranberry 200 MG Capsule 1 cap Twice a day , Taking Multivitamin/Iron , Taking Estradiol 0.1 MG/GM Cream 1 _insert Vaginal Two times a Week , Taking Furosemide 20 MG Tablet 1 tablet Orally Three times a week , Taking Eliquis 5 MG Tablet 1 tablet Orally Twice a day , Taking CALCIUM MAGNESIUM & ZINC , Taking Aspirin Low Dose 81MG Tablet 1 tablet Orally Once a day , Notes to Pharmacist: ALBERTINA-, Taking amLODIPine Besylate 10 MG Tablet 1 tablet Orally Once a day , Taking Carvedilol 6.25 MG Tablet 1 tablet with food Orally Twice a day , Taking Calcium 600+D3 600-400 MG-UNIT Tablet 1 tablet Orally Twice a day , Notes to Pharmacist: ALBERTINA-, Taking PreserVision/Lutein Capsule 1 capsule Orally Twice a day , Notes to Pharmacist: ALBERTINA-, Taking Rosuvastatin Calcium 40 MG Tablet 1 tablet at bedtime Orally Once a day , Taking Tylenol 325 MG Tablet 2 tablets Orally twice a day , Taking Levothyroxine Sodium 100 MCG Tablet 1 tablet in the morning on an empty stomach Orally Once a day , Taking Baclofen 10 MG Tablet 1 tablet Orally Twice a day As needed, Not-Taking/PRN Ceftin 250 MG Tablet 1 tablet Orally every 12 hrs , Not-Taking/PRN Vagifem 10MCG Tablet 1 tablet Vaginal 3X-WEEKLY , Notes to Pharmacist: ALBERTINA-, Not-Taking/PRN Ceftin 250 MG Tablet 1 tablet Orally every 12 hrs , Not-Taking/PRN Macrobid 100 MG Capsule 1 capsule Orally BID , Not-Taking/PRN Nitrofurantoin Monohyd Macro 100 MG Capsule One Orally Twice a day , Not- Taking/PRN Metoprolol Succinate ER 25 MG Tablet Extended Release 24 Hour 1 tablet Orally Once a day , Notes to Pharmacist: ALBERTINA-, Not-Taking/PRN Fish Oil 1200 MG Capsule 1 capsule Orally Once a day , Not-Taking/PRN Doxycycline Hyclate 100 MG Capsule 1 capsule Orally every 12 hrs , Not-Taking/PRN Tessalon Perles 100 MG Capsule 1 capsule as needed Orally Three times a day , Not-Taking/PRN Ceftin 250 MG Tablet 1 tablet Orally Twice a day , Not-Taking/PRN Crestor 20MG Tablet 1 tablet in PM PO BEDTIME , Notes to Pharmacist: ALBERTINA-, Not-Taking/PRN Sular 17MG Tablet Extended Release 24 Hour 1 tablet Orally DAILY , Notes to Pharmacist: ALBERTINA-, Medication List reviewed and reconciled with the patient * Allergies: P enicillins: 11/21/2014- - Allergy, Sulfa Antibiotics: 11/21/2014- - Allergy, Clindamycin: 11/21/2014- - Allergy, Benazepril: 11/21/2014- - Allergy, Demeclocycline: 11/21/2014- - Allergy, Ciprofloxacin: 11/21/2014- - Allergy. Objective: * Vitals: T emp:97.6F, HR:71/min, BP:134/70mm Hg, Wt:136lbs, BMI:24.87Index, Ht: 62 in, RR:16/min, Oxygen sat %:97%, Peak Flow: RA, Wt-k.69 kg. ple. Assessment: * Assessment: 1. E ncounter for general adult medical examination without abnormal findings - Z00.00 ? 2 . A dvance care planning - Z71.89 (Primary) 3 . E ssential (primary) hypertension - I10 4 . M ixed hyperlipidemia - E78.2 5 . H yp hrt & chr kdny dis w hrt fail and stg 1-4/unsp chr kdny - I13.0 6 . A cute on chronic heart failure, unspecified heart failure type - I50.9 7 . C AD (coronary artery disease) - I25.10 8 . U nspecified hearing loss, unspecified ear - H91.90 9 . G naveen-esophageal reflux disease without esophagitis - K21.9 ? 1 0. H ypothyroidism - E03.9 Plan: * Treatment: * Procedure Codes: 9 9497 ADVNCD CARE PLAN 30 MIN, G0439 ANNUAL WELLNESS VST; PPS SUBSQT VST * Preventive Medicine: Your Preventative Wellness Plan: A nnual Wellness Visit S chedule a wellness visit every 12 months with your primary care provider. STATUS: U p to Date, D ate of Last AWV: 0 04/13/2024. R outine Eye Exam 1 . E ndoscopy E ndoscopy Date 0 10/24/2017. C ovid-19 First Vaccine Moderna. C ovid-19 2nd Vaccine Moderna. B one Mass Measurements B one density scan should be completed every 24 months. STATUS:?-. B reast Cancer Screening M ammogram should be performed every 24 months. STATUS: U p to date, L ast Screening Date- 0 . C ardiovascular Diabetes Screening Tests Y our primary care provider should perform cholesterol and lipid tests for cardiovascular disease every 5 years. STATUS: - . C ervical and Vaginal Cancer Screening W omen should have a pap smear or screening pelvic exam performed once every 12-24 months. STATUS: - . C olorectal Cancer Screening C olonoscopy is recommended once every 10 years for patients at low risk or 2 years if at high risk. STATUS: - . D iabetic Eye Exam P atients 18-75 years with diabetes should have retinal or dilated eye exam performed by an post secondary professional. STATUS: - . G laucoma Screening F or high risk patients, eye exams should be performed annually. STATUS: - . I nfluenza Vaccine I nfluenza vaccine should be given once every flu season. STATUS: U p to date, D ate of last flu vaccine: 1 . P neumococcal Vaccine P neumococcal vaccine should be given once in lifetime. STATUS:?Given, D ate of last pneumo vaccine: 0 05/18/2018 Pneumovax. P rostate Cancer Screening M en over 50 should have a digital rectal exam or PSA test every 12 months. STATUS: - . Counseling: C are goal follow-up plan: E xercise Counseling Provided- - , N utrition/Dietary Counseling provided - , B WA management provided - . * Follow Up: 1 Year * * Electronic signature of Johann Patel MD on 04/28/2024 at 11:14 AM EST Sign off status: Pending * Provider: Iban Patel M.D. Date: 0 04/13/2024 Generated for Ferny escalante/Jaime/Harinder on: 0 04/28/2024 11:14 AM EST History and Physical Notes * HPI (History of Present Illness) Category Sub-Category Detail Notes Category Not es Patient Care Team - - Medicare Annual Wellness Visit (AWV) Health Status The patient was asked to assess their own health status today:: Patient feels well today The patient reports their he alth trend to be:: Patient feels like their health is about the same The patient is most concerned about:: - None Type of Visit -: Subsequent Annual Wellness Vi sit Diet The patient describe s their current diet as:: Balanced diet Exercise The patient currently exercises: : Weekly Activities of Daily Living ADLs:: The pa cory is currently independent in all ADLs including bathing, dressing and walking IADLs:: The patient is curre ntly independent in all IADLs including shopping, housekeeping, handling finances and taking medication Home Safety The patient identifi es the follow home safety risks:: No home safety risks identified Vision Screening Vision Issues:: Wears glasses/c ontacts Hearing Screening Hearing Issues:: No hearing pr oblems identified Advance Directives Advance Directives:: Patient has a durable power of trademark attorney Health Risks The patient identifi es the following health risks:: No health risks identified Cognitive Screening Cognitive Screening:: No cog nitive deficits identified Mini-Cog item recall:: 3 out of 3 Substance Use Disorder Screening Do you use any illegal drugs or take any prescription medications that have not been prescribed to you?: No Opioid Use The patient is curre ntly prescribed to opioids?: No Fall Risk Assessment Fall Risk Screening Which a ssistive device(s) do you use?: None Do you have trouble with your balance?: No Fall Risk Assessment:: No falls in the p ast year Are you afraid of falling?: No Advance Care Planning (ACP) Advance Directive Do es your family or friends know what you want in an emergency situation or if you could not speak for yourself?: Yes, I have a living will, Yes, I have a power of trademark attorney Would you like more information on advan ce directives?: No Advance Care Planning Statement At least 16 minutes was spent with the patient and/or the patients caregiver/s on a voluntary, [id number] visit by the physician or other qualified healthcare professional to discuss advance care planning. This included the explanation and review of standard legal documents if any were completed
--- OUTSIDE RECORDS SUMMARY | 2024-04-28 10:14 | XMS_ITS | Data Portability ---
Author Organization [place] [facility], Main Office Address [address] [place] [address] Care Team Providers Care Instructor Ground Services Name Role Phone LARISA GARG Primary Care Provider LARISA GARG Referring Provider Assessment Encounter Date Assessment Date Assessment LastModified by Organization Details LastModified Time 02/18/2023 02/18/2023 HPI: 82-year-old female came in today for evaluation of her right leg pain. Pain started about 3 weeks ago. She thinks it started after she was working in the [employer]. She developed pain in the right lower back that radiates down to the knee. She does not recall any direct injury trauma to start her symptoms. She has been taking Tylenol arthritis [id number]. She is on Eliquis and take anti-inflammatori es. She has been resting little bit these last couple weeks and at this point she is almost completely asymptomatic. Back pain is completely resolved and she is having just a little bit of soreness in the knee depending on activities. Physical exam: 82-year-old female very alert very pleasant. She appears younger than her stated age. She walks very well without limp or assistance. She has no effusion right knee. Range of motion is from 0-140 degrees. There is no tenderness over the medial or lateral joint line. No patellofemoral grind. Hip range of motion is full without discomfort. Negative Stinchfield maneuver. She has normal sensation to the right leg. No edema in the right lower extremity. Impression: Patient most likely has some right-sided low back pain was aggravated 3 weeks ago. It would seem that it radiated to the knee. She does have some very early osteoarthritis on the x-rays today but her physical exam findings are very benign. And again at this point her symptoms are completely minimal. I informed her that her symptoms most likely were coming from the back causing some radicular pain radiating to the knee. At this point she is comfortable and tolerating all activities again she called things change otherwise we will see her back needed. [email or web address] Not available 02/18/2023 12:12:04 Plan of Treatment Reminders Order Date Submit Date Provider Last Modified By Organization Details Last Modified Time Details Appointments None record ed. Lab None record ed. Referral None record ed. Procedures None record ed. Surgeries None record ed. Imaging XR, knee 023 02/19/20 23 [email or web address] [facility] [place], [address], [place], [address], 3 11:34:53 Medication Orders None record ed. Patient TargetsNo targets recorded. Patient InstructionsNo instructions recorded. Reason for Referral None Reported. Results Created Date Observation Date Name Description Value Unit Range Abnormal Flag Note LastModifiedBy Organization Detail LastModifiedTime 02/19/20 23 XR, knee No observ ation record ed. [email or web address] [facility] [place] [address], [place], [address], 02/18/2023 12:08:25 Result Notes None recorded. Problems Name Problem SNOMED Code Status Onset Date Resolution Date Notes Provider Name and Address Organization Details Recorded Time Osteoarthr itis of knee 907224892 Active Not Available [facility] 3 13:30:50 Osteoarthr itis 843491563 Active Not Available [facility] 3 13:30:50 Pain of right knee joint 1532249876853 00 Active 2022 CHARANJIT Osuna [place] [facility] [employer] [facility] 3 11:22:48 Problem Notes None recorded. Procedures Surgical History Date Name Laterality Status Provider Name and Address Organization Details Recorded Time Hysterectomy completed CHARANJIT Osuna [employer] [facility] [employer] 02/18/2023 11:46:12 Stent completed CHARANJIT Osuna [place] [facility] [employer] [facility] 02/18/2023 11:46:21 Imaging Results Imaging Date Name Status LastModified by Organiz ation Details LastModified Time 02/18/2023 XR, knee completed [email or web address] [facility] [place] [address], [place], [address], 02/18/2023 12:08:25 Procedure Notes None recorded. Medical Equipment None Reported. Allergies Allergen ID Allergen Name Allergen Category Reaction Reaction Severity Criticality Documentation Date Start Date Code Code System Note Provider Name and Address Organization Details Recorded Time 62927 Product containin g penicilli n and antibioti c (product) medicatio n Not available Not available Not available 02/18/2023 05520 05 SNOMED Courtney Song RMA null, [facility] 11:42:51 22440 Substance with sulfonami de structure and antibacte rial mechanism of action (substanc e) medicatio n Not available Not available Not available 02/18/2023 22771 8003 SNOMED Courtney Song RMA null, [facility] 3 11:42:59 53869 Cleocin medicatio n Not available Not available Not available 02/18/202333806 2 RxNorm Courtney Song RMA null, [facility] 3 11:43:09 89427 clindamyc in Not available Not available Not available Not available 02/18/2023 2582 RxNorm Courtney Song RMA null, [facility] 3 11:43:26 Medications Name Sig Start Date Stop Date Status Note LastModified by Organization Details LastModified Time diclofenac 75 mg-misopros fredi 200 mcg tablet,imme diate,delay ed release 02/18 completed Not Available Not Available Not Available carvedilol 6.25 mg tablet active Not Available Not Available Not Available prednisone 10 mg tablet active Not Available Not Available Not Available doxycycline hyclate 100 mg capsule 02/18 completed Not Available Not Available Not Available cefuroxime axetil 250 mg tablet TAKE 1 TABLET BY MOUTH EVERY 12 HOURS FOR 7 DAYS 02/18 completed Not Available Not Available Not Available metoprolol succinate ER 50 mg tablet,exte nded release 24 hr 02/18 completed Not Available Not Available Not Available valsartan 160 mg-hydrochl orothiazide 12.5 mg tablet 02/18 completed Not Available Not Available Not Available levothyroxi ne 75 mcg tablet 02/18 completed Not Available Not Available Not Available levothyroxi ne 100 mcg tablet TAKE 1 TABLET BY MOUTH EVERY DAY IN THE MORNING ON AN EMPTY STOMACH active Not Available Not Available No t Available gentamicin 0.3 % eye drops 02/18 completed Not Available Not Available Not Available amlodipine 10 mg tablet active Not Available Not Available Not Available benzonatate 100 mg capsule 02/18 completed Not Available Not Available Not Available erythromyci n 5 mg/gram (0.5 %) eye ointment APPLY 1/2 INCH IN EACH EYE FOUR TIMES DAILY FOR 5 DAYS active Not Available Not Available No t Available WelChol 625 mg tablet 02/18 completed Not Available Not Available Not Available irbesartan 300 mg-hydrochl orothiazide 12.5 mg tablet TAKE 1 TABLET BY MOUTH EVERY DAY active Not Available Not Available No t Available promethazin e 25 mg tablet 02/18 completed Not Available Not Available Not Available furosemide 20 mg tablet active Not Available Not Available Not Available cefuroxime axetil 500 mg tablet TAKE 1 TABLET BY MOUTH EVERY 12 HOURS 02/18 completed Not Available Not Available Not Available metoclopram brenden 10 mg tablet 02/18 completed Not Available Not Available Not Available rosuvastati n 20 mg tablet 02/18 completed Not Available Not Available Not Available rosuvastati n 40 mg tablet active Not Available Not Available Not Available valsartan 320 mg-hydrochl orothiazide 12.5 mg tablet 02/18 completed Not Available Not Available Not Available nisoldipine ER 17 mg tablet,exte nded release 24 hr 02/18 completed Not Available Not Available Not Available GaviLyte-G 236 gram-22.74 gram-6.74 gram-5.86 gram oral solution 02/18 completed Not Available Not Available Not Available Eliquis 5 mg tablet active Not Available Not Available No t Available Yuvafem 10 mcg vaginal tablet 02/18 completed Not Available Not Available Not Available Fluad 65yr up(PF)45 mcg(15 mcgx3)/0.5 mL intramuscul ar syringe 02/18 completed Not Available Not Available Not Available BinaxNOW COVID-19 Ag Self Test kit TEST DIRECTED TODAY 02/18 completed Not Available Not Available Not Available Vitals Date Recorded Body height Body mass index (BMI) Body weight Provider Name and Address Organization Details Last Updated DateTime 02/18/2023 154.94 cm 26.8 kg/m2 22827.12 g Courtney Song CHARANJIT [employer] [facility] 02/18/2023 11:49:27 Social History Question Answer Notes LastModified by Organizat ion Details LastModified Time Tobacco Smoking Status Never Smoker Courtney DuncanBUCKClaudia ventura, [facility] 02/18/2023 11:46:05 What Is Your Level Of Alcohol Consumption? None Information not available 02/18/2023 Sex: Unknown Functional Status None recorded. Mental Status None recorded. Family History Relationship Description Onset Age of this Age Resolved Age Notes LastModified by Organization Details LastModified Time Father Heart disease [email or web address] Not available 2022 11:44:09 Son Diabetes mellitus [email or web address] Not available 2022 11:44:21 Mother Alzheimer's disease [email or web address] Not available 2022 11:44:34 Medical History Condition Response URINARY/BLADDER/KIDNEY PROBLEMS Y USE OF BLOOD THINNERS Y Gynecological HistoryNo gynecological history recorded. Obstetrics History GPAL:G 0 P 0 0 0 0 Past Encounters Encounter ID Performer Location Encounter Start Date Encounter Closed Date Diagnosis/Indication Diagnosis SNOMED-CT Code Diagnosis ICD10 Code Diagnosis Note [id number] MOO Adam [facility] [place] [address] [place] [address] 02/18/2023 10:54:28 02/18/2023 12:32:55 Pain of right knee joint 6895203019 33746 M25.561 Health Concerns Section Related Observation LastModified by Organization Detai ls LastModified Time None Recorded Concern Status LastModified by Organization Details LastModified Time None Recorded Advance Directives Directive None Recorded Payers Encounter Date Sequence Insurance Name Policy Number Policy [place] Covered Member ID [place] Member ID Guarantor Name 02/18/2023 1 [facility] - [employer] - MEDICARE COMPLETE PLAN 2 (MEDICARE REPLACEMENT HMO) [id number] Tanisha Lu [id number] Tanisha Lu OBGybasilio Episode No OBEpisode recorded.
--- OUTSIDE RECORDS SUMMARY | 2024-04-28 10:14 | XMS_ITS ---
Author Organization 1 OF Roland richmond [facility] Address [address] [address] Care Team Providers Care Tile Shader Name Role Phone Barrett Patel MD Primary Care Provider Unavail Jerardo Olivia Unavailable Allergies Allergen (clinical drug ingredient) Drug/Non Drug Allergy documented on EMR Reaction Allergy Type Onset Date Status clindamycin Cleocin Unknown Drug Allergy Activ e Declomycin Unknown Drug Allergy Active ciprofloxacin Ciprofloxacin Unknown Drug Allergy Active Penicillin Unknown Drug Allergy Active Substance with sulfonamide structure and antibacterial mechanism of action (substance) Sulfa Antibiotics Unknown Drug Allergy Active Medications Medication SIG (Take, Route, Fr equency, Duration) Notes Start Date End Date Status Carvedilol Active Diclofenac Sodium 1 % as directed Topica l Apply no more than 4 grams to affected area of foot Q6-8 hours PRN Pain for 30 days 08/09/2023 Active amLODIPine Besylate Active Aspirin Active Calcium Active PreserVision AREDS A ctive Levothyroxine Sodium Active Rosuvastatin Calcium Active Estradiol Active Eliquis Active Tylenol Active Vital Signs Height 60 in 03/08/2024 Weight 145 lbs 03/08/2024 BMI 28.32 kg/m2 03/08/2024 Encounters Encounter Location Date Provider Diagnosis 1 [facility] [address] [address] 03/08/2024 Jerardo Bright Onychogryphosis L60.2 ; Generalized atherosclerosis I70.91 and Nail dystrophy L60.3 Assessments Encounter Date Diagnosis (ICD Code) Assessment Notes Treatment Notes Treatment Clinical Notes Section Notes 03/08/2024 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 Next Appt Details Follow Up: 10-12 weeks or co ntact office PRN with any concerns, Reason: Provider Name:Jerardo Bright, 05/17/2024 02:20:00 PM, [facility] [address], [address] [address], [place], [address], Procedure Notes * Category Sub-Category Detail Notes PALLIATIVE FOOT CARE: Nail debride (94353): Debr idement of five or less mycotic and/or hypertrophic nails, utilizing manual and electric debridement the affected nails were reduced the nails in length and thickness with curettage of debris from nail margins performed as needed. Nail thickness reduced by:, 10% Dystrophic nail trim (G0127) All dystrop hic nails reduced in length and thickness with curettage of debris from nail margins as needed Progress Notes * Tanisha LU EDOB: (83 yo F)Acc No.[id number]:03/08/2024 Progress Note Patient: Tanisha BROOKS Provider: Roland Bright DPM :1940 A ge:83 Y S ex:Female Date:03/08/2024 [facility] Pcp:Barrett Patel MD Subjective: * Chief Complaints: * * HPI: M A assisting with visit:: Chart Prep Benigno sanchez. HPI/Rooming: Sravanthi shaila. P rimarlene reason for visit:: 83 year old female RTO for at risk foot care. Pt reports no acute issues with nails or calluses today. * Medical History: * Surgical History: N o Surgical History documented. * Hospitalization/Major Diagno stic Procedure: * Family History: Diabetes, Rheumatiod Arthritis, Heart attacks. * Medications: T akingEstradiol Eliquis Tylenol Aspirin Calcium PreserVision AREDS Levothyroxine Sodium Rosuvastatin Calcium amLODIPine Besylate Carvedilol Diclofenac Sodium 1 % Gel as directed Topical Apply no more than 4 grams to affected area of foot Q6-8 hours PRN Pain Taking Estradiol Taking Eliquis Taking Tylenol Taking Aspirin Taking Calcium Taking PreserVision AREDS Taking Levothyroxine Sodium Taking Rosuvastatin Calcium Taking amLODIPine Besylate Taking Carvedilol Taking Diclofenac Sodium 1 % Gel as directed Topical Apply no more than 4 grams to affected area of foot Q6-8 hours PRN Pain DiscontinuedIrbesartan Metoprolol Succinate Medication List reviewed and reconciled with the patientDiscontinued Irbesartan Discontinued Metoprolol Succinate Medication List reviewed and reconciled with the patient * Allergies: S ulfa AntibioticsPenicillinCiprofloxacinDeclomycinCleocinno[Allergies Verified] Objective: * Vitals: W t:145lbs, Wt-k.77 kg, Ht:60in, BMI:28.32Index. * Examination: G eneral Examination: Constitutional / Appearance: N o acute distress , Well nourished, Appropriate personal hygiene. Mental status: C ooperative, Oriented to person, place and time, Mood and affect: normal, Judgement and intellect: normal with appropriate response to questions. Shoes today: , tennis shoe. L ower Extremity VASCULAR: : Pulses: D P pulse diminished bilateral; PT pulse absent bilateral. Temperature gradient: decreased from proximal to distal bilateral. Pedal hair: s parse / absent bilateral. ? L ower Extremity DERM: : Skin: r elatively dry, thin, atrophic, no suspicious lesions, bilateral. Nails: TA & T5, relatively thickened, dystrophic, incurvated, Multiple other nails appear elongated and dystrophic with abnormal shape, periungual debris, subungual hyperkeratosis and/or partial onycholysis. . Hyperkeratotic lesions LEFT foot: no significant hpk lesions noted. Hyperkeratotic lesions RIGHT foot: n o significant hpk lesions noted. L ower Extremity NEURO: : General sensation appears i ntact, bilateral. Muscle tone d iminished bilateral. L ower Extremity MSK: : Left lower extremity inspection and palpation: N o palpable masses or nodules noted.. Right lower extremity inspection and palpation: N o palpable masses or nodules noted. . Assessment: * Assessment: 1. 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 G eneralized atherosclerosis - I70.91 (Primary) 3 . 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 Nail thickness reduced by:, 10%. Dystrophic nail trim (G0127) A ll dystrophic nails reduced in length and thickness with curettage of debris from nail margins as needed. * Procedure Codes: 1 1720 DEBRIDE NAIL, 1-5, Modifiers: Q8 G0127 TRIMMING DYSTROPHIC NAILS ANY #, Modifiers: 59 , Q8 * Preventive Medicine: Counseling: C are goal follow-up plan: BMI counseling provided to patient:?Lifestyle education Screenings: F ALL RISK SCREENING Fall Risk Assessment: N o falls in the past year * Follow Up: 1 0-12 weeks or contact office PRN with any concerns * Images: * ICAL CARE RN Sign off status: Completed true * Provider: Roland Bright DPM Date: 05/09/2023 Generated for Ferny escalante/Jaime/Harinder on: 0 04/28/2024 10:13 AM CRITICAL CARE RN History and Physical Notes * HPI (History of Present Illness) Category Sub-Category Detail Notes Category Not es Primary reason for visit: 83 year old female RTO for at risk foot care. Pt reports no acute issues with nails or calluses today. MA assisting with visit: HPI/Rooming: Kitty Shelby Examination Category Sub-Category Detail Notes Category Not es General Examination Mental status: Cooperative, Oriented to person, place and time, Mood and affect: normal, Judgement and intellect: normal with appropriate response to questions Shoes today: , tennis shoe Constitutional / Appearance: No acute di stress , Well nourished, Appropriate personal hygiene Lower Extremity VASCULAR: Pulses: DP pul se diminished bilateral; PT pulse absent bilateral Temperature gradient: decreased from pro ximal to distal bilateral Pedal hair: sparse / absent bila teral Lower Extremity NEURO: General sensation appears intac t, bilateral Muscle tone diminished bilateral Lower Extremity MSK: Left lower extremit y inspection and palpation: No palpable masses or nodules noted. Right lower extremity inspection and pal pation: No palpable masses or nodules noted. Diagnostic Studies: X-rays of left lower extremity: Lower Extremity DERM: Skin: relatively dry, thin, atrophic, no suspicious lesions, bilateral Nails: TA & T5, relatively thickened, dystrophic, incurvated, Multiple other nails appear elongated and dystrophic with abnormal shape, periungual debris, subungual hyperkeratosis and/or partial onycholysis. Hyperkeratotic lesions LEFT foot: no sig nificant hpk lesions noted Hyperkeratotic lesions RIGHT foot: no si gnificant hpk lesions noted
--- OUTSIDE RECORDS SUMMARY | 2024-04-28 10:14 | XMS_ITS ---
Author Organization 1 OF Roland richmond [facility] Address [address] [facility] [address] [place] [address] Care Team Providers Care Hha Name Role Phone Barrett Patel MD Primary [...] (substance) Sulfa Antibiotics Unknown Drug Allergy Active REASON FOR VISIT High Risk Foot care Medications Medication SIG (Take, Route, Frequency, Duration) Notes Start Date End Date Status Metoprolol Succinate Not-Taking Irbesartan Active amLODIPine Besylate Active Carvedilol Active Diclofenac Sodium 1 % as directed Topica l Apply no more than 4 grams to affected area of foot Q6-8 hours PRN Pain for 30 days 08/09/2023 Activ e Aspirin Active Calcium Active PreserVision AREDS A ctive Levothyroxine Sodium Active Rosuvastatin Calcium Active Eliquis Active Tylenol Active Estradiol Active Vital Signs Height 60 in 10/18/2023 Weight 145 lbs 10/18/2023 BMI 28.32 kg/m2 10/18/2023 Encounters Encounter Location Date Provider Diagnosis 1 OF [facility] [facility] [address] [place] [address] 10/18/2023 Jerardo Bright Onychogryphosis L60.2 ; Generalized atherosclerosis I70.91 and Nail dystrophy L60.3 Assessments Encounter Date Diagnosis (ICD Code) Assessment Notes Treatment Notes Treatment Clinical Notes Section Notes 10/18/2023 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 Next Appt Details Follow Up: 10-12 weeks or co ntact office PRN with any concerns, Reason: Provider Name:Jerardo Bright, 05/17/2024 02:20:00 PM, [address] [place] [address], [place], [address], Procedure Notes * Category Sub-Category Detail Notes PALLIATIVE FOOT CARE: Nail debride (89695): Debr idement of five or less mycotic [...] needed Progress Notes * Tanisha LU EDOB: (82 yo F)Acc No.[id number]:10/18/2023 Progress Note Patient: Eliza NAOMIRachellTanisha E Provider: Roland Bright DPM :1940 A ge:82 Y S ex:Female Date:10/18/2023 Address:[address] [place], [place] [id number] Pcp:Barrett Patel MD Subjective: * Chief Complaints: * H igh Risk Foot care * HPI: M A assisting with visit:: HPI/Rooming: Eliza graff reason for visit:: 82 year old female RTO for at risk foot care. Pt reports no acute issues with nails or calluses today. * Medical History: * Surgical History: N o Surgical History documented. * Hospitalization/Major Diagno stic Procedure: * Family History: Diabetes, Rheumatiod Arthritis, Heart attacks. * Medications: T akingEstradiol Eliquis Tylenol Aspirin Calcium PreserVision AREDS Levothyroxine Sodium Rosuvastatin Calcium Irbesartan amLODIPine Besylate Carvedilol Diclofenac Sodium 1 % Gel as directed Topical Apply no more than 4 grams to affected area of foot Q6-8 hours PRN Pain Taking Estradiol Taking Eliquis Taking Tylenol Taking Aspirin Taking Calcium Taking PreserVision AREDS Taking Levothyroxine Sodium Taking Rosuvastatin Calcium Taking Irbesartan Taking amLODIPine Besylate Taking Carvedilol Taking Diclofenac Sodium 1 % Gel as directed Topical Apply no more than 4 grams to affected area of foot Q6-8 hours PRN Pain Not-Taking/PRNMetoprolol Succinate Medication List reviewed and reconciled with the patientNot-Taking/PRN Metoprolol Succinate Medication List reviewed and reconciled with the patient * Allergies: S ulfa AntibioticsPenicillinCiprofloxacinDeclomycinCleocinno[Allergies Verified] Objective: * Vitals: W t:145lbs, Wt-k.77 kg, Ht: 60 in, BMI:28.32Index. * Examination: G eneral Examination: Constitutional / Appearance: N o acute distress , Well nourished, Appropriate personal hygiene. Mental status: C ooperative, Oriented to person, place and time, Mood and affect: normal, Judgement and intellect: normal with appropriate response to questions. Shoes today: t krissy shoe. L ower Extremity VASCULAR: : Pulses: [...] 1. 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 Pt reports no acute issues with nails or calluses today. MA assisting with visit: HPI/Rooming: Olu Examination Category Sub-Category Detail Notes Category Not es General Examination Mental status: Cooperative, Oriented to person, place and time, Mood and affect: normal, Judgement and intellect: normal with appropriate response to questions Shoes today: tennis shoe Constitutional / Appearance: No acute [...]
--- OUTSIDE RECORDS SUMMARY | 2024-04-28 10:14 | XMS_ITS ---
Author Organization 1 OF Roland richmond [facility] Address [address] [facility] [address] [place] [address] Care Team Providers Care Cinetechnician Name Role Phone Barrett Patel MD Primary Care Provider Unavail Jerardo [facility] [phone] Allergies Allergen (clinical drug ingredient) Drug/Non Drug [...] Duration) Notes Start Date End Date Status Levothyroxine Sodium Active PreserVision AREDS A ctive Irbesartan Not-Takin g Rosuvastatin Calcium Active amLODIPine Besylate Active Estradiol Active Tylenol Active Eliquis Active Calcium Active Aspirin Active Diclofenac Sodium 1 % as directed Topica l Apply no more than 4 grams to affected area of foot Q6-8 hours PRN Pain for 30 days 08/09/2023 Activ e Carvedilol Active Metoprolol Succinate Not-Taking Vital Signs Height 60 in 12/27/2023 Weight 145 lbs 12/27/2023 BMI 28.32 kg/m2 12/27/2023 Encounters Encounter Location Date Provider Diagnosis 1 OF [facility] [address] [facility] [address] [place] [address] 12/27/2023 Jerardo Bright Onychogryphosis L60.2 ; Generalized atherosclerosis I70.91 and Nail dystrophy L60.3 Assessments Encounter Date Diagnosis (ICD Code) Assessment Notes Treatment Notes Treatment Clinical Notes Section Notes 12/27/2023 Onychogryphosis (ICD-10 - L60.2) 12/27/2023 Generalized atherosclerosis (ICD-10 - I70.91) Considering the associated comorbidities and physical exam findings today, this patient is at substantial risk of developing serious foot complications in the absence of regular and professional palliative foot care. 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 Pcp:Barrett Patel MD Subjective: * Chief Complaints: * H igh Risk Foot care * HPI: M A assisting with visit:: HPI/Rooming: Ryan. Shelley reason for visit:: 83 year old female RTO for at risk foot care. Pt reports no acute issues with nails or calluses today. * Medical History: * Surgical History: N o Surgical History documented. * Hospitalization/Major Diagno stic Procedure: N o Hospitalization History. * Family History: Diabetes, Rheumatiod Arthritis, Heart [...] area of foot Q6-8 hours PRN Pain Not-Taking/PRNIrbesartan Metoprolol Succinate Medication List reviewed and reconciled with the patientNot-Taking/PRN Irbesartan Not-Taking/PRN Metoprolol Succinate Medication List reviewed and reconciled [...] Procedures: P ALLIATIVE FOOT CARE:: Nail debride (16054): D ebridement of five or less mycotic [...] PRN with any concerns * Images: * Electronically signed by [facility] arden Bright DPM on 12/27/2023 at 11:29 AM CDT Sign off status: Completed true * Provider: Roland Bright DPM Date: 1 Generated for Ferny escalante/Jaime/Harinder on: 0 04/28/2024 10:13 AM PRODUCTION CONTROL TECHNOLOGIST History and Physical Notes * HPI (History of Present Illness) Category Sub-Category Detail Notes Category Not es Primary reason for visit: 83 year old female RTO for at risk foot care. Pt reports no acute issues with nails or calluses today. MA assisting with visit: HPI/Rooming: , Olu Examination Category Sub-Category Detail Notes Category [...]
--- OUTSIDE RECORDS SUMMARY | 2024-04-28 10:14 | XMS_ITS | Clinical Summary ---
Author Organization [facility] Address [address] [place] [address] Care Team Providers Care Dietary Aid Name Role Phone Barrett Patel MD Primary Care Provider [phone] Social History Tobacco Use Types Packs/Day Years Used Date Smoking Tobacco: Never Assessed Comments Unknown Sex and Gender Information Value Date Recorded Sex Assigned at Not on file Legal Sex Female 10:20 PM CDT Gender Identity Not on file Sexual Orientation Not on file Plan of Treatment Health Maintenance Due Date Last Done Comments DTaP, Tdap and Td Vaccines ( 1 - Tdap) 1957 Zoster Vaccines (1 of 2) 1988 Pneumococcal Vaccine: 65+ Ye ars (1 of 1 - PCV) 11/19/2003 RSV Immunization or 60+ Years (1 - 1-dose 75+ series) 2013 COVID-19 Vaccine (2023-2 5 season) 2023 Influenza Adult (#1) 2023 Meningococcal B Vaccine Aged Out No l onger eligible based on patient's age to complete this topic Meningococcal Vaccine Aged Out No kashif leandro eligible based on patient's age to complete this topic RSV Immunizations Under 20 Months Aged Out No longer eligible based on patient's age to complete this topic Care Teams Dietary Aid Relationship Specialty Start Date End Date Barrett Patel MD PCP - General 04/03/15
--- OUTSIDE RECORDS SUMMARY | 2024-04-28 10:15 | XMS_ITS ---
Author Organization [facility] Address [address] [address] Care Team Providers Care Team Truck Driver Name Role Phone Patel, Barrett Primary Care Provider [phone] Allergies Allergen (clinical drug ingredient) Drug/Non Drug [...] Drug Allergy Act cristhian REASON FOR VISIT Acute - c/o Rt. Sciatic pain x 3 weeks. Pt has been using heat and Tylenol - Now better. Medications Medication SIG (Take, Route, Frequency, Duration) Notes Start Date End Date Status Aspirin Low Dose 81MG 1 tablet Orally On ce a day ALBERTINA- 10/21/2011 Active CALCIUM MAGNESIUM & ZINC Active Eliquis 5 MG 1 tablet Orally Twic e a day Active Furosemide 20 MG 1 tablet Orally Thre e times a week Active Estradiol 0.1 MG/GM 1 _insert Vaginal Tw o times a Week Active Baclofen 10 MG 1 tablet Orally Twice a day for 30 days As needed 02/28/2024 Active Cranberry 200 MG 1 cap Twice a day Active Vagisil Active Sular 17MG 1 tablet Orally DAILY [facility]- Not-Taking Multivitamin/Iron Ac tive Tessalon Perles 100 MG 1 capsule as need ed Orally Three times a day for 7 days 02/18/2017 Not-Taking Doxycycline Hyclate 100 MG 1 capsule Ora lly every 12 hrs for 7 days 02/18/2017 Not-Taking Fish Oil 1200 MG 1 capsule Orally Onc e a day Not-Taking Crestor 20MG 1 tablet in PM PO BEDTIME [facility]- Not-Taking Ceftin 250 MG 1 tablet Orally Twic e a day for 7 days 01/31/2017 Not-Taking Nitrofurantoin Monohyd Macro 100 MG One Orally Twice a day for 7 days 01/08/2021 Not-Taking Macrobid 100 MG 1 capsule Orally BID for 7 days 01/28/2021 Not-Taking Ceftin 250 MG 1 tablet Orally ever y 12 hrs for 7 days 12/29/2020 Not-Taking Metoprolol Succinate ER 25 MG 1 tablet Orally Once a day [facility]- Not-Taking Vagifem 10MCG 1 tablet Vaginal 3X-WEEKLY [facility]- Not-Taking Rosuvastatin Calcium 40 MG 1 tablet at b edtime Orally Once a day Active PreserVision/Lutein 1 capsule Orally Twi ce a day [facility]- 08/08/2013 Active Ceftin 250 MG 1 tablet Orally ever y 12 hrs for 7 days 12/17/2021 Not-Taking Levothyroxine Sodium 100 MCG 1 tablet in the morning on an empty stomach Orally Once a day for 90 days Active Tylenol 325 MG 2 tablets Orally twi ce a day Active Carvedilol 6.25 MG 1 tablet with food Orally Twice a day Active amLODIPine Besylate 10 MG 1 tablet Orall y Once a day Active Calcium 600+D3 600-400 MG-UNIT 1 tablet Orally Twice a day [facility]- 10/21/2011 Active Social History Tobacco Use: Social History [...] Are you an other tobacco user? No Vital Signs Temperature 97.8 degrees Fahrenheit 02/28/20 24 Blood pressure systolic 126 mm Hg 02/28/20 24 Blood pressure diastolic 74 mm Hg 024 Heart Rate 72 /min 02/28/2024 Respiratory Rate 16 /min 02/28/2024 Height 62 in 02/28/2024 Weight 137 lbs 02/28/2024 BMI 25.05 kg/m2 02/28/2024 Oximetry 98 % 02/28/2024 ple Encounters Encounter Location Date Provider Diagnosis [facility] [address] [facility] [address] [place] [address] 02/28/2024 Barrett Patel Dorsalgia M54.9 ; Essential (primary) hypertension I10 ; Mixed hyperlipidemia E78.2 ; Chronic diastolic heart failure I50.32 and Anxiety F41.9 Assessments Encounter Date Diagnosis (ICD Code) Assessment Notes Treatment Notes Treatment Clinical Notes Section Notes 02/28/2024 Dorsalgia (ICD-10 - M54.9) Back Pain: Care Instructions material was published 02/28/2024 Essential (primary) hypertension (ICD-10 - I10) 02/28/2024 Mixed hyperlipidemia (ICD-10 - E78.2) 02/28/2024 Chronic diastolic heart failure (ICD-10 - I50.32) 02/28/2024 Anxiety (ICD-10 - F41.9) Plan Of Treatment Medication Medication Name Sig Start Date Stop Date Notes Baclofen 10 MG 1 tablet Orally Twice a day for 30 days 12/2023 Treatment Notes Assessment Notes Dorsalgia Back Pain: Care Inst ructions material was published Next Appt Details Provider Name:Barrett lopez, 07/23/2024 10:00:00 AM, [address], [address], [place], [address], Progress Notes * MARILEE FIGUEREDO EDOB: (83 yo F)Acc No.[id number]:02/28/2024 Progress Notes Patient: Eliza MARILEE SALGADO Provider: Iban Patel M.D. :1940 A ge:83 Y S ex:Female Date:02/28/2024 Address:[facility] Subjective: * Chief Complaints: * 1 . Acute - c/o Rt. Sciatic pain x 3 weeks. Pt has been using heat and Tylenol - Now better.. * Medical History: H ypertension(benign), CAD(Coronary artery disease), GERD(Gastroesophageal reflux disease), Hearing loss,Note-Bilateral Hearing aids, Hyperlipidemia, Hypothyroidism, Low back pain, Osteoarthritis, Otosclerosis. * Family History: M igFamilyHx: Sibling-Heart disease. F ather: diagnosed with Unspecified heart disease.?Son(s): diagnosed with Diabetes mellitus without mention of complication, type II or unspecified type, not stated as uncontrolled, Unspecified essential hypertension. M aternal aunt: diagnosed with Other malignant neoplasm of [...] empty stomach Orally Once a day , Not-Taking/PRN Ceftin 250 MG [...] 11/21/2014- - Allergy. Objective: * Vitals: T emp:97.8F, HR:72/min, BP:126/74mm Hg, Wt:137lbs, BMI:25.05Index, Ht: 62 in, RR:16/min, Oxygen sat %:98%, Peak Flow: RA, Wt-k.14 kg. ple. Assessment: * Assessment: 1. D orsalgia - M54.9 (Primary) 2 . E ssential (primary) hypertension - I10? 3. M ixed hyperlipidemia - E78.2 4 . C hronic diastolic heart failure - I50.32 5 . A nxiety - F41.9 Plan: * Treatment: * Preventive Medicine: Your Preventative Wellness Plan: R outine Eye Exam . * * Electronic signature of Johann Patel MD on 04/28/2024 at 11:14 AM EST Sign off status: Pending * Provider: Iban Patel M.D. Date: 04/30/2023 Generated for Ferny escalante/Jaime/Lcitting on: 0 04/28/2024 11:14 AM EST
--- OUTSIDE RECORDS SUMMARY | 2024-04-28 10:15 | XMS_ITS | Encounter Summary ---
Author Organization [facility] Address [address] [facility] [address] [place] [address] Care Team Providers Care Yield Improvement Engineer Name Role Phone Barrett Patel MD Primary Care Provider [phone] Encounter Details Date Type Department Care Team (Late st Contact Info) Description 08/09/2016 Orders Only [facility] ProviderJeremie MD [address] [place] [address] Social History Tobacco Use Types Packs/Day Years Used Date Smoking Tobacco: Never Alcohol Use Standard Drinks/Week Comments No 0 (1 standard drink = 0.6 oz pur e alcohol) Comments Unknown Sex and Gender Information Value Date Recorded Sex Assigned at Not on file Legal Sex Female 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 Historical Provider [facility] HER[facility] Final Result documented in this encounter Visit Diagnoses Not on filedocumented in this encounter Care Teams Yield Improvement Engineer Relationship Specialty Start Date End Date Barrett Patel MD PCP - General 06/18/16 documented as of this encounter
--- OUTSIDE RECORDS SUMMARY | 2024-04-28 10:15 | XMS_ITS | Referral Summary ---
Author Organization [facility] [address] Address [address] [place] [address] Care Team Providers Care Assembler Radio And Electrical Name Role Phone Barrett Patel MD Primary Care Provider [phone] Allergies Active Allergy Reactions Criticality Noted Date Comments Benazepril Swelling Medium 12/03/2008 Ciprofloxacin Swelling Medium 01/16/2013 Clindamycin Swelling Medium 12/29/2007 Demeclocycline Unknown 01/20/2015 Penicillins Unknown 12/29/2007 Sulfa (Sulfonamide Antibiotics) Unknown Sulfasalazine Unknown 12/29/2007 Medications vit C-vit O-udzrja-qylg-l utein (PRESERVISION LUTEIN) 226 mg-200 unit -5 mg-0.8 mg capsule TAKE 1 BY MOUTH TWICE A DAY 0 0 4 Active levothyroxine (SYNTHROID) 100 mcg tablet take 1 tablet by oral route every day 0 0 3 Active acetaminophen ER (TYLENOL) 650 mg 8 hr tablet Take 1 tablet (650 mg total) by mouth every 8 (eight) hours as needed for pain Active aspirin 81 mg enteric coated tablet Take 1 tablet (81 mg total) by mouth nightly Active calcium carbonate-vitam in D3 1,250mg (500mg elemental) - 5 mcg (200 units) per tablet Take 2 tablets by mouth daily Active omega 0-usb-niv-fish oil 1,200 (144-216) mg capsule daily Active estradioL (ESTRACE) 0.01 % (0.1 mg/gram) vaginal cream INSERT 1 GRAM VAGINALLY AT BEDTIME TWO NIGHTS PER WEEK 4 Active amLODIPine (NORVASC) 10 mg tablet Take 1 tablet (10 mg total) by mouth nightly 90 tablet 3 4 Active carvediloL (COREG) 6.25 mg tablet Take 1 tablet (6.25 mg total) by mouth 2 (two) times a day with meals 180 tablet 3 4 Active apixaban (Eliquis) 5 mg tablet Take 1 tablet (5 mg total) by mouth 2 (two) times a day 180 tablet 3 4 Active furosemide (LASIX) 20 mg tablet Take 1 tablet (20 mg total) by mouth 3 (three) times a week 36 tablet 3 4 Active irbesartan (AVAPRO) 150 mg tablet Take 1 tablet (150 mg total) by mouth nightly 90 tablet 3 4 Active rosuvastatin (CRESTOR) 40 mg tablet Take 1 tablet (40 mg total) by mouth nightly 90 tablet 3 4 Active Active Problems Problem Noted Date Diagnosed Date Paroxysmal atrial fibrillation ([facility]) 022 Assessment & Plan (08/13/2022 11:20 AM CDT): She is on good medical therapy with Coreg 6.25 mg b.i.d. and Eliquis. She is not experienced any bleeding complications from her anticoagulant. It appears that she is currently in sinus rhythm. Given her worsening lower extremity edema we will obtain NT proBNP along with a BMP. In addition, we will also restart her Lasix 20 mg daily Assessment & Plan (01/22/2022 10:12 AM CDT): Recently diagnosed with paroxysmal atrial fibrillation. Currently on apixaban and Coreg 6.25 mg b.i.d.. She is currently in normal sinus rhythm. She denies palpitations dyspnea on exertion or lower extremity edema. She appears to be euvolemic on exam. Review of her lab work also showed that her last creatinine was elevated, will recheck a BMP and will also obtain an NT proBNP Will make no adjustments to her medications today. Chronic heart failure with p reserved ejection fraction ([facility]) 08/31/2021 Assessment & Plan (08/13/2022 11:21 AM CDT): She has heart failure preserved ejection fraction. She has worsening lower extremity edema and as aforementioned we will obtain further lab work including a NT proBNP and a BMP. We will also restart her Lasix 20 mg daily and repeat a BNP in 1 week from now Assessment & Plan (01/22/2022 10:15 AM CDT): She has heart failure preserved ejection fraction with most recent echocardiogram showing an ejection fraction of 60%. Will continue focus on managing her hypertension. Nonrheumatic aortic valve stenosis 01/23/2021 Assessment & Plan (08/13/2022 11:25 AM CDT): Is mild aortic stenosis per her most recent echo. We will plan to repeat an echocardiogram in 2025 or before if there is change in symptoms Assessment & Plan (01/22/2022 10:15 AM CDT): Echocardiogram from 07/15/2020 demonstrated moderate aortic stenosis. Her most recent TTE obtained this year when she was admitted for atrial fibrillation RVR as well as acute decompensated heart failure did not on med on moderate aortic stenosis. Unfortunately we do not have access to primary data. We will plan to repeat echocardiogram next year. Assessment & Plan (01/23/2021 11:27 AM CDT): Echocardiogram from 07/15/2020 showed normal LV size and function with an EF of 70% as well as moderate aortic stenosis. Will plan to repeat TTE in 3 years from now. Diastolic dysfunction 01/23/2021 Assessment & Plan (01/23/2021 11:29 AM CDT): In addition, TTE from 07/15/2020 also described grade 2 diastolic dysfunction. Will continue to focus on blood pressure management. Blood pressure remains well controlled. We will make no changes to her medical regimen today. Syncope and collapse 06/27/2020 Assessment & Plan (06/27/2020 1:19 PM CDT): She had an episode of possible syncope associated with fall and injury. Her symptoms are not clearly consistent with orthostasis, arrhythmia, or neurogenic syncope. It is unclear what happened. We will check a TTE history of murmurs on exam has not had one in a long time. We will also use a 30 day event monitor to assess for arrhythmia given her history of left bundle-branch block. Essential hypertension 08/01/2017 Assessment & Plan (01/22/2022 10:14 AM CDT): Referring Clinic found to be elevated. He mentions that she has not been checking blood pressure at home. Prior to adjusting her medical therapy will have patient check her blood pressure twice a day for the next 2 weeks. She will call us with blood pressure readings. Assessment & Plan (01/23/2021 11:27 AM CDT): Her hypertension has been well controlled long-term regimen. Will make no adjustments. Patient will continue to take amlodipine 10 mg daily and irbesartan/HCTZ 100/12.5 mg daily. Assessment & Plan (06/27/2020 1:18 PM CDT): Her blood pressure is probably not at goal and is certainly elevated today. She continues on irbesartan 300, amlodipine 10, and hydrochlorothiazide 12.5. She is agreeable to check her blood pressure consistently at home report advised has. We will make further changes pending her home pressures. Assessment & Plan (11/30/2019 12:18 PM CDT): Her blood pressure in uncontrolled. She does not check her BP at home. We will add amlodipine 5 mg daily and continue irbesartan/HCTZ and metoprolol. Assessment & Plan (05/18/2019 9:58 AM AIRPORT OPERATIONS SUPERVISOR): Her blood pressure is at goal today. We will continue metoprolol and combination ARB/HCTZ. She had a recent BMP in February of 2019 with good potassium and a creatinine of 1.1. Bruit of left carotid artery 08/01/2017 Overview (05/14/2019): Carotid duplex U/S 2014 <50% stenosis bilaterally Assessment & Plan (05/18/2019 9:56 AM AIRPORT OPERATIONS SUPERVISOR): She is asymptomatic and has no audible bruit on exam today. She had prior duplex ultrasonography which showed no significant stenosis. We will monitor this only clinically. Continue medical therapy for ASCVD with aspirin and high-intensity statin. Coronary artery disease invo lving tribe coronary artery of tribe heart without angina pectoris 01/28/2017 Overview (05/14/2019): stent implantation October 21, [facility] at [facility] with a 3.5 x 28 mm, 2.5 x 23 mm, and a 3.5 x 18 mm [place] to the right coronary artery and ostial segments respectively in the setting of an abnormal stress test and symptoms. Stress test September 2018Small to moderate sized area of mild to moderate fixed defect involving the anteroseptum likely consistent with prior infarction although breast attenuation artifact is not excluded. No ischemia Assessment & Plan (08/13/2022 11:22 AM CDT): She is status post remote PCI. Most recent nuclear stress test from 2019 showed a nonreversible perfusion defects consistent with infarction. Make no changes to her current medical therapy. The patient remains chest pain-free Assessment & Plan (01/22/2022 10:13 AM CDT): She is status post percutaneous coronary intervention in 2005. She had a nuclear stress study in 2019 that showed a smile and mild fixed perfusion defect involving the anterior septum consistent with prior infarction. Continue with aspirin 81 mg daily well as Crestor 40 mg q.h.s.. We will continue focus on getting her blood pressure under control Assessment & Plan (01/23/2021 11:26 AM CDT): Patient is known to have coronary artery disease status post remote stenting drug-eluting stenting 2005. In 2019, she had a myocardial perfusion imaging that showed a small to moderate sized area of mild to moderate fixed defect involving the anteroseptum likely consistent with prior infarction however breast attenuation artifact could not be excluded. She remains chest pain-free. Will continue focus on risk factor modification. Continue with aspirin 81 mg daily, continue Crestor 40 mg q.h.s. Assessment & Plan (06/27/2020 1:17 PM CDT): She has a history of coronary disease and underwent stent placement in 2005. She has no symptoms of angina. She continues on aspirin 81 mg daily and rosuvastatin 20 mg daily. Assessment & Plan (11/30/2019 12:17 PM CDT): She has a history of stenting with last in 2005. She had a infarct on stress testing in 2018 without evidence of reversible ischemia. She has no chest pain. She cotninues on aspirin, metoprolol, and rosuvastatin. Assessment & Plan (05/18/2019 9:57 AM AIRPORT OPERATIONS SUPERVISOR): She has longstanding atypical chest pain for which she underwent nuclear stress testing with no inducible ischemia. She has good exercise tolerance and no heart failure symptoms. We will continue medical therapy with aspirin, high-intensity statin, beta-blockade. Dyslipidemia 02/04/2016 Overview (06/24/2016): Dyslipidemia Assessment & Plan (01/23/2021 11:24 AM CDT): Most recent lipid panel from 06/27/2020 showing total cholesterol of 137 and LDL cholesterol 68. Patient is currently on Crestor 40 mg q.h.s. Will repeat lipid panel next year. Assessment & Plan (06/27/2020 1:19 PM CDT): She continues on rosuvastatin 20 mg daily. We will recheck a lipid panel. Assessment & Plan (11/30/2019 12:18 PM CDT): We will continue rosuvastatin. Assessment & Plan (05/18/2019 9:59 AM AIRPORT OPERATIONS SUPERVISOR): Her last lipid panel in October of 2018 with an LDL of 92. She is tolerating rosuvastatin 20 mg daily. We discussed options of increasing her rosuvastatin, or adding Zetia. She has tolerated rosuvastatin without issue, so will increase from 20 mg to 40 mg daily. We will plan on rechecking a CMP and lipid panel in 3 months. Adverse effect of drug 08/11/2015 Overview (06/24/2016): Medication side effects, subsequent encounter Fatigue 02/10/2015 Overview (06/24/2016): Fatigue, unspecified type Left bundle branch block (LBBB) 08/13/2014 Overview (06/24/2016): LBBB (left bundle branch block) Social History Tobacco Use Types Packs/Day Years Used Date Smoking Tobacco: Never Smokeless Tobacco: Never Tobacco Cessation:Counseling Given: Not Answered Alcohol Use Standard Drinks/Week Comments No 0 (1 standard drink = 0.6 oz pur e alcohol) AUDIT-C Answer Date Recorded Q1: How often do you have a drink containing alc ohol? Never 08/31/2021 Average Number of Drinks Not on file 022 Frequency of Binge Drinking Not on file 08/19 Personal Safety Answer Date Recorded Getting School Help Needed Not on file 03/09 Comments No Sex and Gender Information Value Date Recorded Sex Assigned at Not on file Legal Sex Female 3:05 AM AIRPORT OPERATIONS SUPERVISOR Gender Identity Not on file Sexual Orientation Not on file Last Filed Vital Signs Vital Sign Reading Time Taken Comments Blood Pressure 135/56 11/17/2023 3:50 PM CDT Pulse 68 11/17/2023 3:50 PM CDT Temperature 36.9 C (98.4 F) 09/01/2021 4:11 PM CDT Respiratory Rate 20 09/01/2021 4:11 PM CDT Oxygen Saturation 99% 11/17/2023 3:50 PM CDT Inhaled Oxygen Concentration - - Weight 62.4 kg (137 lb 9.6 oz) 11/17/2023 3:50 P M CDT Height 154.9 cm (5' 1 ) 11/17/2023 3:50 PM CDT Body Mass Index 11/17/2023 3:50 PM CDT Plan of Treatment Not on file Insurance [facility] SECURE HORIZONS [facility] MDCR HMO REF [facility] Address: [address] [address] [place] [address] [employer] MEDICARE Care Teams Assembler Radio And Electrical Relationship Specialty Start Date End Date Barrett Patel MD [facility] - General 06/18/16
--- OUTSIDE RECORDS SUMMARY | 2024-04-28 10:15 | XMS_ITS | Clinical Summary ---
Author Organization [facility] Address [address] [place] [address] Phone Care Team Providers Care Post Manager Name Role Phone Unavailable Primary Care Provider Unavailabl e Social History Tobacco Use Types Packs/Day Years Used Date Smoking Tobacco: Never Assessed Comments Unknown Sex and Gender Information Value Date Recorded Sex Assigned at Not on file Legal Sex Female 5:33 AM WINDERMAN Gender Identity Not on file Sexual Orientation Not on file Plan of Treatment Health Maintenance Due Date Last Done Comments DTAP/TDAP/TD VACCINES (1 - Tdap) 1957 PNEUMOCOCCAL VACCINE 65+ YEARS (1 of 1 - PCV) 11/18/18 89 ZOSTER VACCINE (1 of 2) 1988 OSTEOPOROSIS SCREENING 11/19/2003 RSV VACCINE (60+ or ) (1 - 1-dose 75+ series) 2013 INFLUENZA VACCINE (#1) 2023
--- OUTSIDE RECORDS SUMMARY | 2024-04-28 10:15 | XMS_ITS | Clinical Summary ---
Author Organization [facility] Address [address] [place] [place] [address] Care Team Providers Care Last Ironer Name Role Phone Teofilo Harris MD Unavailable [phone] Barrett Patel MD Primary Care Provider [phone] Source Comments [facility],non-owned Affiliates and Associated Physician Practices is amultiple site organization consisting of ambulatory clinics and hospital sitesin [place], [place], [place] and [place]. This disclosure is being madepursuant to the Care Everywhere program and may not contain all information available regarding this patient. Last updated 17.[facility] [employer] Allergies Active Allergy Reactions Criticality Noted Date Comments Benazepril Swelling,Other,Unknown Medium 12/03/2008 Ciprofloxacin Swelling 01/16/2013 Ciprofloxacin Swelling,Unknown Medium 01/16/2013 Cleocin 12/29/2007 Clindamycin Swelling,Other,Unknown Medium 12/29/2007 Demeclocycline Unknown 01/20/2015 Lotensin 12/03/2008 Penicillins Unknown 12/29/2007 Sulfa Drugs Unknown 12/29/2007 Sulfasalazine Unknown 12/29/2007 Medications * Be aware that medications may not be up to date on this document. Alwaysverify current medications with the patient. Medication Sig Dispensed Refills Start Date End Date Status aspirin 81 MG tablet Take 81 mg by mouth once daily Pt is taking every other day Active metoprolol succinate XL 24hr (TOPROL XL) 50 MG tablet Take 25 mg by mouth once daily Active levothyroxine (SYNTHROID) 100 MCG tablet 100 mcg 03/12/2013 Active Multiple Vitamins-Minerals (PRESERVISION AREDS 2 PO) Take 1 tablet by mouth Active acetaminophen CR (TYLENOL 8 HOUR ARTHRITIS PAIN) 650 MG tablet Take 650 mg by mouth every 8 hours as needed for Pain Active irbesartan-hydroCHLO ROthiazide (AVALIDE) 300-12.5 MG tablet Take 1 tablet by mouth once daily 01/23/2018 Active rosuvastatin (CRESTOR) 40 MG tablet Take 40 mg by mouth once daily Active amLODIPine (NORVASC) 10 MG tablet Take 10 mg by mouth once daily 01/17/2020 Active estradiol (VAGIFEM) 10 MCG vaginal tabletIndications:At rophic Vaginitis Insert 1 tablet into the vagina every Tuesday & Tuesday Reasons: Atrophic Vaginitis 40 tablet 1 02/08/2020 Active Active Problems Problem Noted Date Diagnosed Date Bruit of left carotid artery 08/01/2017 Essential hypertension 08/01/2017 Nuclear sclerosis of both eyes 09/08/2015 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, l eft 04/04/2014 Vitreous degeneration, bilateral 04/04/2014 Atrophic vaginitis 12/29/2007 Coronary artery disease invo lving [place] coronary artery of [place] heart without angina pectoris 12/29/2007 Resolved Problems Problem Noted Date Diagnosed Date Resolved Date Screening for condition 12/29/200711/19 Overview (12/19/2014): Adult Abstraction Problem List Screening Pap Smear: Result: 11/28/2007 Mammogram: Result: 11/2007 Family History Medical History Relation Name Comments Diabetes - Type 2 Neg Hx Glaucoma Neg Hx Macular Degeneration Neg Hx Social History Tobacco Use Types Packs/Day Years Used Date Smoking Tobacco: Never Smokeless Tobacco: Never Alcohol Use Standard Drinks/Week Comments No 0 (1 standard drink = 0.6 oz pur e alcohol) Sex and Gender Information Value Date Recorded Sex Assigned at Not on file Gender Identity Not on file Sexual Orientation Not on file Last Filed Vital Signs Vital Sign Reading Time Taken Comments Blood Pressure 140/60 02/06/2020 11:01 AM ASSISTANT CONSTRUCTION SUPERINTENDENT Pulse - - Temperature - - Respiratory Rate - - Oxygen Saturation - - Inhaled Oxygen Concentration - - Weight 69.6 kg (153 lb 6.4 oz) 02/06/2020 11:01 AM ASSISTANT CONSTRUCTION SUPERINTENDENT Height 154.9 cm (5' 1 ) 02/06/2020 11:01 AM ASSISTANT CONSTRUCTION SUPERINTENDENT Body Mass Index 28.98 02/06/2020 11:01 AM ASSISTANT CONSTRUCTION SUPERINTENDENT Plan of Treatment Health Maintenance Due Date Last Done Comments BONE DENSITY TESTING 1938 DTAP/TDAP/TD VACCINES (1 - Tdap) 1957 PNEUMOCOCCAL VACCINE 50+ (1 of 1 - PCV) 1988 ZOSTER VACCINE (1 of 2) 1988 Respiratory Syncytial Virus (RSV) Vaccine Pt: or over 60 yrs (1 - 1-dose 75+ series) 2013 COVID-19 VACCINE ( - 2023-2 5 season) 2023 INFLUENZA VACCINE (#1) 2023 DEPRESSION SCREENING 03/21/2024 MEDICARE AWV CALENDAR YEAR 2024 HEPATITIS B VACCINE Aged Out No longe r eligible based on patient's age to complete this topic HIB VACCINE Aged Out No longer eligi ble based on patient's age to complete this topic HPV VACCINE Aged Out No longer eligi ble based on patient's age to complete this topic MENINGOCOCCAL (Group B) VACCINE Aged Out No longer eligible based on patient's age to complete this topic MENINGOCOCCAL VACCINE Aged Out No kashif leandro eligible based on patient's age to complete this topic Care Teams Last Ironer Relationship Specialty Start Date End Date Teofilo Harris MD PCP - OBGYN 12/29/07 Barrett Patel MD PCP - General 07/19/17
--- OUTSIDE RECORDS SUMMARY | 2024-04-28 10:15 | XMS_ITS | Clinical Summary ---
Author Organization [facility] [address] Address [address] [place] [address] Care Team Providers Care Infrastructure Architect Name Role Phone Barrett Patel MD Primary Care Provider [phone] Allergies Active Allergy Reactions Criticality Noted Date Comments Benazepril Swelling Medium 12/03/2008 Ciprofloxacin Swelling Medium 01/16/2013 Clindamycin Swelling Medium 12/29/2007 Demeclocycline Unknown 01/20/2015 Penicillins Unknown 12/29/2007 Sulfa (Sulfonamide Antibiotics) Unknown Sulfasalazine Unknown 12/29/2007 Medications vit C-vit Z-dczlyu-tssy-l utein (PRESERVISION LUTEIN) 226 mg-200 unit -5 [...] 2 tablets by mouth daily Active omega 4-bav-yxg-fish oil 1,200 (144-216) mg capsule daily Active [...] Noted Date Diagnosed Date Paroxysmal atrial fibrillation ([facility]) 022 Assessment & Plan (08/13/2022 [...] heart failure with p reserved ejection fraction ([facility]) 08/31/2021 Assessment & Plan (08/13/2022 [...] metoprolol. Assessment & Plan (05/18/2019 9:58 AM LYE BOILER): Her blood pressure is at goal today. We will continue metoprolol and combination ARB/HCTZ. She had a recent BMP in February of 2019 with good potassium and a creatinine of 1.1. Bruit of left carotid artery 08/01/2017 Overview (05/14/2019): Carotid duplex U/S 2014 <50% stenosis bilaterally Assessment & Plan (05/18/2019 9:56 AM LYE BOILER): She is asymptomatic and has no audible bruit on exam today. She had prior duplex ultrasonography which showed no significant stenosis. We will monitor this only clinically. Continue medical therapy for ASCVD with aspirin and high-intensity statin. Coronary artery disease invo lving [place] coronary artery of [place] heart without angina pectoris 01/28/2017 Overview (05/14/2019): stent [facility], [facility] with a 3.5 x 28 mm, 2.5 [...] rosuvastatin. Assessment & Plan (05/18/2019 9:57 AM LYE BOILER): She has longstanding atypical chest pain for [...] rosuvastatin. Assessment & Plan (05/18/2019 9:59 AM LYE BOILER): Her last lipid panel in October of [...] Overview (06/24/2016): LBBB (left bundle branch block) Surgical History Surgery Date Site/Laterality Comments CORONARY STENT PLACEMENT Coronary Stent Placement Medical History Medical History Date Comments Chronic coronary artery disease Coronary Artery Disease Hypertension Hypertension Hx Other Medical Abnormal LFT's Family History Medical History Relation Name Comments Coronary artery disease Brother Coronary artery disease Father Heart attack Father Sudden Cardiac Father No Known Problems Father's Brother No Known Problems Father's Sister No Known Problems Maternal Grandfather No Known Problems Maternal Grandmother No Known Problems Mother No Known Problems Mother's Brother No Known Problems Mother's Sister No Known Problems Other No Known Problems Paternal Grandfather No Known Problems Paternal Grandmother No Known Problems Sister Coronary artery disease Son Diabetes Son Hypertension Son Anemia Neg Hx Arrhythmia Neg Hx Asthma Neg Hx Clotting disorder Neg Hx Fainting Neg Hx Heart disease Neg Hx Heart failure Neg Hx Hyperlipidemia Neg Hx Hypertrophic cardiomyopathy Neg Hx Stroke Neg Hx Relation Name Status Comments Brother Father Father's Brother Father's Sister Maternal Grandfather Maternal Grandmother Mother Mother's Brother Mother's Sister Other Paternal Grandfather Paternal Grandmother Sister Son Social History Tobacco Use Types Packs/Day Years [...] on file Legal Sex Female 3:05 AM LYE BOILER Gender Identity Not on file Sexual Orientation Not on file Obstetrics History Last Filed Vital Signs Vital Sign Reading [...] 11/17/2023 3:50 PM CDT Body Mass Index 26 11/17/2023 3:50 PM CDT Plan of Treatment Health Maintenance Due Date Last Done Comments Depression Screening 1940 Osteoporosis Screening-Bone Density Scan 1938 DTaP/Tdap/Td Vaccine (1 - Tdap) 1949 Hepatitis B Screening 1956 Zoster Vaccine (1 of 2) 1988 Well Visit 65+ 11/19/2003 Pneumococcal vaccine 65+ (2 of 2 - PCV) 05/18/2019 05/18/2018 Fall Risk Assessment 09/01/2022 09/01/2021 Influenza Vaccine (#1) 2023 9, 12/15/2017, 12/30/2016 Insurance [facility] SECURE HORIZONS [facility] MDCR HMO REF [employer] MEDICARE Care Teams Infrastructure Architect Relationship Specialty Start Date End Date Barrett Patel MD PCP - General 06/18/16
--- OUTSIDE RECORDS SUMMARY | 2024-04-28 10:15 | XMS_ITS | Encounter Summary ---
Author Organization [facility] Address 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2 mg/dL [facility] CO2 25 22 - 30 mmol/L [facility] CREATININE 0.90 0.51 - 0.95 mg/dL [facility] POTASSIUM 4.3 3.5 - 4.9 mmol/L [facility] BUN 17 6 - 20 mg/dL [facility] CHLORIDE 100 96 - 108 mmol/L [facility] GFR, >60 >=60 mL/min/1.7 sq meter [facility] GFR >60 >=60 mL/min/1.7 sq meter [facility] Comment: Estimated GFR rate interpretative information for both Americans and non- Americans is available on the [facility] Intranet at: [email or web address] Select: Lab Policies and Procedures Select: Reference Ranges - GFR Blood specimen (specimen) 07/17/2007 12:34 PM CDT 07/17/2007 2:07 PM CDT us Mason Deleon MD CHEMISTRY ORDERABLES Edited [facility] [address] [place] [address] * CBC WITH DIFFERENTIAL (07/17/2007 12:34 PM CDT) HEMATOCRIT 42.1 35.5 - 44.0 % [facility] RDW-STDEV 40.7 37.1 - 48.7 fL [facility] RBC 4.51 3.90 - 4.90 M/uL [facility] MCHC 33.3 31.5 - 35.5 % [facility] MCV 93.3 82.0 - 99.0 fL [facility] PLATELETS 219 140 - 350 K/uL [facility] HEMOGLOBIN 14.0 11.8 - 14.8 g/dL [facility] RDW 12.1 11.5 - 14.5 % [facility] WBC 7.8 4.0 - 9.8 K/uL [facility] MCH 31.0 27.2 - 32.6 pg [facility] MPV 12.4 9.3 - 12.4 fL [facility] NEUTROPHILS 58 45 - 70 % [facility] NEUTROPHIL ABSOLUTE 4.53 1.90 - 7.00 K/uL [facility] EOSINOPHILS 4 0 - 7 % [facility] EOSINOPHIL ABSOLUTE 0.31 0.00 - 0.70 K/uL [facility] LYMPHOCYTES 31 16 - 45 % [facility] LYMPHOCYTE ABSOLUTE 2.38 0.70 - 4.50 K/uL [facility] BASOPHILS 0 0 - 2 % [facility] BASOPHILS ABSOLUTE 0.03 0.00 - 0.20 K/uL [facility] MONOCYTES 7 3 - 13 % [facility] MONOCYTE ABSOLUTE 0.55 0.10 - 1.30 K/uL [facility] Blood specimen (specimen) 07/17/2007 12:34 PM CDT 07/17/2007 2:07 PM CDT us Mason Deleon MD HEMATOLOGY ORDERABLES Edited [facility] [address] [place] [address] documented in this encounter Visit Diagnoses Diagnosis Otosclerosis, unspecified documented in this encounter
--- OUTSIDE RECORDS SUMMARY | 2024-04-28 10:16 | XMS_ITS | Patient Health Summary ---
Author Organization [facility] Address [address] [facility] [place] [address] Care Team Providers Care Education Professor Name Role Phone Teofilo Harris MD Unavailable [phone] Barrett Patel MD Primary Care Provider [phone] Note from [facility],non-owned Affiliates and Associated Physician Practices is amultiple site organization consisting of ambulatory clinics and hospital sitesin [place], [place], [place] and [place]. This disclosure is being madepursuant to the Care Everywhere program and may not contain all information available regarding this patient. Last updated 17.[facility] Allergies * Benazepril(Swelling,Other,Unknown) -Medium Criticality * Ciprofloxacin(Swelling) * Ciprofloxacin(Swelling,Unknown) -Medium Criticality * Cleocin * Clindamycin(Swelling,Other,Unknown) -Medium Criticality * Demeclocycline(Unknown) * Lotensin * Penicillins(Unknown) * Sulfa Drugs(Unknown) * Sulfasalazine(Unknown) * Beclomethasone,Inactive Medications * Be aware that medications may not be up to date on this document. Alwaysverify current medications with the patient. * aspirin 81 MG tablet Take 81 mg by mouth once daily Pt is taking every other day * metoprolol succinate XL 24hr (TOPROL XL) 50 MG tablet Take 25 mg by mouth once daily * levothyroxine (SYNTHROID) 100 MCG tablet(Started 03/12/2013) 100 mcg * Multiple Vitamins-Minerals (PRESERVISION AREDS 2 PO) Take 1 tablet by mouth * acetaminophen CR (TYLENOL 8 HOUR ARTHRITIS PAIN) 650 MG tablet Take 650 mg by mouth every 8 hours as needed for Pain * irbesartan-hydroCHLOROthiazide (AVALIDE) 300-12.5 MG tablet(Started 01/23/2018) Take 1 tablet by mouth once daily * rosuvastatin (CRESTOR) 40 MG tablet Take 40 mg by mouth once daily * amLODIPine (NORVASC) 10 MG tablet(Started 01/17/2020) Take 10 mg by mouth once daily * estradiol (VAGIFEM) 10 MCG vaginal tablet(Started 02/08/2020) Insert 1 tablet into the vagina every Tuesday & Tuesday Reasons: Atrophic Vaginitis 1 refill by 02/05/2021 Active Problems Problem Noted Date Diagnosed Date Bruit of left carotid artery 08/01/2017 Essential hypertension 08/01/2017 Nuclear sclerosis of both eyes 09/08/2015 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, l eft 04/04/2014 Vitreous degeneration, bilateral 04/04/2014 Atrophic vaginitis 12/29/2007 Coronary artery disease invo lving [place] coronary artery of [place] heart without angina pectoris 12/29/2007 Resolved Problems Problem Noted Date Diagnosed Date Resolved Date Screening for condition 12/29/200711/19 Social History Tobacco Use Types Packs/Day Years [...] Comments Blood Pressure 140/60 02/06/2020 11:01 AM ASSOCIATE COUNSEL Pulse - - Temperature - - Respiratory Rate - - Oxygen Saturation - - Inhaled Oxygen Concentration - - Weight 69.6 kg (153 lb 6.4 oz) 02/06/2020 11:01 AM ASSOCIATE COUNSEL Height 154.9 cm (5' 1 ) 02/06/2020 11:01 AM ASSOCIATE COUNSEL Body Mass Index 28.98 02/06/2020 11:01 AM ASSOCIATE COUNSEL Procedures * EYE EXAM(Performed 05/22/2020) * EYE EXAM(Performed 04/03/2020) * EYE EXAM(Performed 01/04/2020) * EYE EXAM(Performed 11/22/2019) * EYE EXAM(Performed 10/11/2019) * EYE EXAM(Performed 07/19/2019) * EYE EXAM(Performed 05/07/2019) * [place] INJ INTRAVITREAL PHARMCOLOGIC LT(Performed 06/21/2018) Performed for Exudative age-related macular degeneration of left eye with active choroidal neovascularization (HCC) * OPH OCT TEST SLU(Performed 06/05/2018) Performed for Blurred vision, bilateral * OPH OCT TEST SLU(Performed 05/04/2018) Performed for Blurred vision, bilateral * [place] INJ INTRAVITREAL PHARMCOLOGIC LT(Performed 03/29/2018) Performed for Exudative age-related macular degeneration of left eye with active choroidal neovascularization (HCC) * OPH OCT TEST SLU(Performed 03/23/2018) Performed for Blurred vision, bilateral * MAMMOGRAPHY ORDER(Performed 02/21/2018) * OPH OCT TEST SLU(Performed 02/08/2018) Performed for Early dry stage nonexudative age-related macular degeneration of right eye, 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 (HCC) * [place] INJ INTRAVITREAL PHARMCOLOGIC LT(Performed 12/28/2017) Performed for Exudative age-related macular degeneration of left eye with active choroidal neovascularization (HCC) * OPH OCT TEST SLU(Performed 12/19/2017) Performed for ARMD (age related macular degeneration) * [place] INJECT INTRAVITREAL PHARMCOLOGIC(Performed 08/03/2017) Performed for Exudative age-related macular degeneration of left eye with active choroidal neovascularization (HCC) * OPH OCT TEST SLU(Performed 07/21/2017) Performed for Exudative age-related macular degeneration of left eye, unspecified stage (HCC) * MAMMOGRAPHY ORDER(Performed 02/19/2017) * MAMMOGRAPHY ORDER(Performed 02/18/2016) * MAMMOGRAPHY ORDER(Performed 02/14/2015) * MAMMO BILAT SCREENING(Performed 01/17/2013) * MAMMO BILAT SCREENING(Performed 01/12/2012) * MAMMO BILAT DIAGNOSTIC(Performed 01/08/2010) * PAP IG LB RFLX HPV HR ASCU RFLX 16,18(Performed 12/16/2009) Performed for Routine gynecological examination * MAMMO BILAT SCREENING(Performed 12/16/2009) * MAMMO RIGHT DIAGNOSTIC(Performed 12/18/2008) Performed for Abnormal Mammogram * MAMMO BILAT SCREENING(Performed 12/04/2008) * PAP IG RFLX HPV ASCU(Performed 12/03/2008) Performed for Routine Gynecological Examination Results * EYE EXAM (05/22/2020 1:00 PM ASSOCIATE COUNSEL) Anatomical Region Laterality Modality Other Narrative 05/22/2020 1:00 PM ASSOCIATE COUNSEL Ordered by an unspecified provider. Scanned Document SCANNING ONLY * EYE EXAM (04/03/2020 2:30 PM ASSOCIATE COUNSEL) Anatomical Region Laterality Modality Other Narrative 04/03/2020 2:30 PM ASSOCIATE COUNSEL Ordered by an unspecified provider. Scanned Document SCANNING ONLY * EYE EXAM (01/04/2020 9:59 AM CDT) Anatomical Region Laterality Modality Other Narrative 01/04/2020 9:59 AM CDT Ordered by an unspecified provider. Scanned Document SCANNING ONLY * EYE EXAM (11/22/2019 10:55 AM CDT) Anatomical Region Laterality Modality Other Narrative 11/22/2019 10:55 AM CDT Ordered by an unspecified provider. Scanned Document SCANNING ONLY * EYE EXAM (10/11/2019 1:13 PM CDT) Anatomical Region Laterality Modality Other Narrative 10/11/2019 1:13 PM CDT Ordered by an unspecified provider. Scanned Document SCANNING ONLY * EYE EXAM (07/19/2019 12:10 PM CDT) Anatomical Region Laterality Modality Other Narrative 07/19/2019 12:10 PM CDT Ordered by an unspecified provider. Scanned Document SCANNING ONLY * EYE EXAM (05/07/2019 8:08 AM ASSOCIATE COUNSEL) Anatomical Region Laterality Modality Other Narrative 05/07/2019 8:08 AM ASSOCIATE COUNSEL Ordered by an unspecified provider. Scanned Document SCANNING ONLY * [place] INJ INTRAVITREAL PHARMCOLOGIC LT (06/21/2018 10:51 AM CDT) Narrative Jalen Perkins MD - 06/21/2018 10:51 AM CDT Jalen Perkins MD 06/21/2018 10:51 AM (No note.) Jalen Perkins MD PROCEDURE/MINOR SURG ICAL ORDERABLES * OPH OCT TEST SLU (06/05/2018 12:00 AM CDT) Anatomical Region Laterality Modality Other 06/05/2018 Jalen Perkins MD OPHTHALMOLOGY SERVIC ES ORDERABLES * OPH OCT TEST SLU (05/04/2018 12:00 AM ASSOCIATE COUNSEL) Anatomical Region Laterality Modality Other 05/04/2018 Jalen Perkins MD OPHTHALMOLOGY SERVIC ES ORDERABLES * [place] INJ INTRAVITREAL PHARMCOLOGIC LT (03/29/2018 9:25 AM ASSOCIATE COUNSEL) Narrative Jalen Perkins MD - 03/29/2018 9:25 AM ASSOCIATE COUNSEL Jalen Perkins MD 03/29/2018 9:25 AM (No note.) Jalen Perkins MD PROCEDURE/MINOR SURG ICAL ORDERABLES * OPH OCT TEST SLU (03/23/2018 12:00 AM ASSOCIATE COUNSEL) Anatomical Region Laterality Modality Other 03/23/2018 Jalen Perkins MD OPHTHALMOLOGY SERVIC ES ORDERABLES * MAMMOGRAPHY ORDER (02/21/2018) Only the most recent of4 resultswithin the time period is included. Anatomical Region Laterality Modality Mammography Scanned Document MAMMO ORDERABLES * OPH OCT TEST SLU (02/08/2018 12:00 AM ASSOCIATE COUNSEL) Anatomical Region Laterality Modality Other 02/08/2018 Jalen Perkins MD OPHTHALMOLOGY SERVIC ES ORDERABLES * [place] INJ INTRAVITREAL PHARMCOLOGIC LT (12/28/2017 9:57 AM CDT) Narrative Jalen Perkins MD - 12/28/2017 9:57 AM CDT Jalen Perkins MD 12/28/2017 9:57 AM (No note.) Jalen Perkins MD PROCEDURE/MINOR SURG ICAL ORDERABLES * OPH OCT TEST SLU (12/19/2017 12:00 AM CDT) Anatomical Region Laterality Modality Other 12/19/2017 Jalen Perkins MD OPHTHALMOLOGY SERVIC ES ORDERABLES * [place] INJECT INTRAVITREAL PHARMCOLOGIC (08/03/2017 10:00 AM CDT) Narrative Jalen Perkins MD - 08/03/2017 10:00 AM CDT Jalen Perkins MD 08/03/2017 10:00 AM (No note.) Jalen Perkins MD PROCEDURE/MINOR SURG ICAL ORDERABLES * OCT (07/21/2017 9:36 AM CDT) Anatomical Region Laterality Modality Other 07/21/2017 9:36 AM CDT Jalen Perkins MD OPHTHALMOLOGY SERVIC ES ORDERABLES * MAMMO SCREENING DIGITAL IMAGE BILAT (01/17/2013) Only the most recent of4 resultswithin the time period is included. Anatomical Region Laterality Modality Breast Bilateral Other Teofilo Harris MD MAMMO ORDERABLES * MAMMO DIAG DIRECT DIGITAL IMAGE BILA (01/08/2010) Anatomical Region Laterality Modality Bilateral Other Teofilo Harris MD MAMMO ORDERABLES * PAP IG RFLX HPV ASCU RFLX 16/18 (PO REF LAB) (12/16/2009 10:19 AM CDT) Diagnosis [facility] ACCOUNT BILL Comment:NEGATIVE FOR INTRAEP ITHELIAL LESION AND MALIGNANCY. Specimen Adequacy [facility] ACCOUNT BILL Comment:Satisfactory for miranda luation. No endocervical component is identified. Clinician Provided ICD9 [facility] ACCOUNT BILL Comment:V72.31 ; Routine clerk supervisor ecological examination Performed by [facility] ACCOUNT BILL Comment:Juhi Clark hnologist (ASCP) Comment . [facility] ACCOUNT BILL Note [facility] ACCOUNT BILL Comment: The Pap smear is a screening test designed to aid in the detection of premalignant and malignant conditions of the uterine cervix. It is not a diagnostic procedure and should not be used as the sole means of detecting cervical cancer. Both false-positive and false-negative reports do occur. . IGLBP CPT Code Automation [facility] ACCOUNT BILL Comment: This liquid based ThinPrep(R) pap test was screened with the use of an image guided system. Reflex [facility] ACCOUNT BILL Comment: The HPV DNA reflex criteria were not met with this specimen result therefore, no HPV testing was performed. . MICROSCOPIC CYTOLOGIC EXAMINATION OF SMEAR OF SPECIMEN FROM FEMALE GENITAL TRACT PREPARED USING PAPANICOLAOU TECHNIQUE / Unknown 12/16/2009 10:19 AM CDT 12/17/2009 11:02 AM CDT Narrative [facility] ACCOUNT BILL - 12/18/2009 12:12 PM CDT Source.............Vaginal No. of containers..01 CYTYC Thin Prep Vial Resulting Agency Comment [facility] [address] [place] [phone] Teofilo Harris MD LAB - PATHOLOGY/CYTO LOGY ORDERABLES [facility] ACCOUNT BILL * MAMMO DIAG DIRECT DIGITAL IMAGE UNIL RIGHT (12/18/2008) Anatomical Region Laterality Modality Right Other Teofilo Harris MD MAMMO ORDERABLES * PAP SMEAR IG RFLX HPV ASCU (PO REF LAB) (12/03/2008 10:46 AM CDT) Diagnosis [facility] ACCOUNT BILL Comment:NEGATIVE FOR INTRAEP ITHELIAL LESION AND MALIGNANCY. Specimen Adequacy [facility] ACCOUNT BILL Comment:Satisfactory for miranda luation. Clinician Provided ICD9 [facility] ACCOUNT BILL Comment:V72.31 ; Routine clerk supervisor ecological examination Performed by [facility] ACCOUNT BILL Comment:Chantel Florence, Cyto technologist (ASCP) Comment . [facility] ACCOUNT BILL Note [facility] ACCOUNT BILL Comment: The Pap smear is a screening test designed to aid in the detection of premalignant and malignant conditions of the uterine cervix. It is not a diagnostic procedure and should not be used as the sole means of detecting cervical cancer. Both false-positive and false-negative reports do occur. . IGLBP CPT Code Automation [facility] ACCOUNT BILL Comment: This liquid based ThinPrep(R) pap test was screened with the use of an image guided system. Reflex [facility] ACCOUNT BILL Comment: The HPV DNA reflex criteria were not met with this specimen result therefore, no HPV testing was performed. . MICROSCOPIC CYTOLOGIC EXAMINATION OF SMEAR OF SPECIMEN FROM FEMALE GENITAL TRACT PREPARED USING PAPANICOLAOU TECHNIQUE / Unknown 12/03/2008 10:46 AM CDT 12/04/2008 3:18 AM CDT Narrative [facility] ACCOUNT BILL - 12/06/2008 4:16 PM CDT No. of containers..01 CYTYC Thin Prep Vial Resulting Agency Comment [facility] [address] [phone] Teofilo Harris MD LAB - PATHOLOGY/CYTO LOGY ORDERABLES [facility] ACCOUNT BILL Care Teams Education Professor Relationship Specialty Start Date End Date Teofilo Harris MD PCP - OBGYN 12/29/07 Barrett Patel MD PCP - General 07/19/17
--- OUTSIDE RECORDS SUMMARY | 2024-04-28 10:16 | XMS_ITS | Patient Health Record ---
Author Organization 1 OF Roland richmond [facility] Address [address] [place] [address] Care Team Providers Care Coil Former Name Role Phone Barrett Patel MD Primary Care Provider Unavail able Jerardo Bright Unavailable Allergies Allergen (clinical drug ingredient) Drug/Non Drug Allergy documented on EMR Reaction Allergy Type Onset Date Status clindamycin Cleocin Unknown Drug Allergy Activ e Declomycin Unknown Drug Allergy Active ciprofloxacin Ciprofloxacin Unknown Drug Allergy Active Penicillin Unknown Drug Allergy Active Substance with sulfonamide structure and antibacterial mechanism of action (substance) Sulfa Antibiotics Unknown Drug Allergy Active Reason For Referral No Information Medications Medication SIG (Take, Route, Fr equency, Duration) Notes Start Date End Date Status Carvedilol Active Diclofenac Sodium 1 % as directed Topica l Apply no more than 4 grams to affected area of foot Q6-8 hours PRN Pain for 30 days 08/09/2023 Active Estradiol Active Eliquis Active Tylenol Active Aspirin Active Calcium Active PreserVision AREDS A ctive Levothyroxine Sodium Active Rosuvastatin Calcium Active amLODIPine Besylate Active Social History Tobacco Use: Social History Observation Description Date Details (start date - stop date) Never Smoker NA - NA Tobacco Use/Smoking Question Answer Notes Are you a nonsmoker Problems Problem Type SNOMED Code ICD Code Onset Dates Problem Status W/U Status Risk Notes Problem 23212523 Generalized atherosclerosis (I70.91) Active confirmed Problem 5621460273083862 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 confirmed Problem 5502978014384033 Arthritis of ri ght foot (M19.071) Active confirmed Problem 07245496 Vitamin D deficiency (E55.9) Active confirmed Vital Signs Height 60 in 03/08/2024 Weight 145 lbs 03/08/2024 BMI 28.32 kg/m2 03/08/2024 Encounters Encounter Location Date Provider Diagnosis 1 OF Roland Bright [facility] [address] [place] [phone] 05/10/2023 Christopher Deangelo Onychogryphosis L60.2 ; Generalized atherosclerosis I70.91 and Nail dystrophy L60.3 1 OF Roland Bright [facility] [address] [place] [phone] 08/09/2023 Christopher Deangelo Onychogryphosis L60.2 ; Generalized atherosclerosis I70.91 ; Nail dystrophy L60.3 ; Pain, joint, ankle and foot, left M25.572 ; Joint pain of ankle and foot, right M25.571 ; Arthritis of left foot M19.072 and Arthritis of right foot M19.071 1 OF Roland Bright [facility] [address] [place] [phone] 10/18/2023 Christopher Deangelo Onychogryphosis L60.2 ; Generalized atherosclerosis I70.91 and Nail dystrophy L60.3 1 OF Roland Bright [facility] [address] [place] [phone] 12/27/2023 Christopher Deangelo Onychogryphosis L60.2 ; Generalized atherosclerosis I70.91 and Nail dystrophy L60.3 1 OF Roland Bright [facility] [address] [place] [phone] 03/08/2024 Christopher Deangelo Onychogryphosis L60.2 ; Generalized atherosclerosis I70.91 and Nail dystrophy L60.3 Assessments Encounter Date Diagnosis (ICD Code) Assessment Notes Treatment Notes Treatment Clinical Notes Section Notes 05/10/2023 Onychogryphosis (ICD-10 - L60.2) 08/09/2023 Onychogryphosis (ICD-10 - L60.2) 10/18/2023 Onychogryphosis (ICD-10 - L60.2) 12/27/2023 Onychogryphosis (ICD-10 - L60.2) 03/08/2024 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 08/09/2023 Generalized atherosclerosis (ICD-10 - I70.91) Considering the associated comorbidities and physical exam findings today, this patient is at substantial risk of developing serious foot complications in the absence of regular and professional palliative foot care. 10/18/2023 Generalized atherosclerosis (ICD-10 - I70.91) Considering the associated comorbidities and physical exam findings today, this patient is at substantial risk of developing serious foot complications in the absence of regular and professional palliative foot care. 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 Consider oral OTC Ibuprofen or Aleve if topical fails to provide adequate relief. Rx for topical Diclofenac sent to pharmacy today. f/u PRN for this condition 10/18/2023 Other Plan Of Treatment Next Appt Details Provider Name:Jerardo Bright, 05/17/2024 02:20:00 PM, [address] [place], [phone], Insurance Providers Payer Name Payer Address Payer Phone Subscriber Number Group Number Insured Name Patient Relationship to Insured Coverage Start Date Coverage End Date [employer] [address] [place] [address] [id number] Tanisha Lu Self - patient is the insured Medical (General) History Medical History History ICD Code Arthritis Bleeding Disorder High Cholesterol Hypertension Hyperthyriodism Macular degeneration Surgical History Surgery Date(Month/Year)
--- OUTSIDE RECORDS SUMMARY | 2024-04-28 10:16 | XMS_ITS | Referral Summary ---
Author Organization [facility] Address [address] [place] [address] Care Team Providers Care Guide Rail Cleaner Name Role Phone Teofilo Harris MD Unavailable [phone] Barrett Patel MD Primary Care Provider [phone] [facility],non-owned Affiliates and Associated Physician Practices is amultiple site organization consisting of ambulatory clinics and hospital sitesin [place], [place], [place] and [place]. This disclosure is being madepursuant to the Care Everywhere program and may not contain all information available regarding this patient. Last updated 17.[facility] [employer] Allergies Active Allergy Reactions Criticality Noted Date [...] vaginitis 12/29/2007 Coronary artery disease invo lving sitka coronary artery of sitka heart without angina pectoris 12/29/2007 Resolved Problems Problem Noted Date Diagnosed Date Resolved Date Screening for condition 12/29/200711/19 Overview (12/19/2014): Adult Abstraction Problem List Screening Pap Smear: Result: 11/28/2007 Mammogram: Result: 11/2007 Social History Tobacco Use Types Packs/Day Years [...] Comments Blood Pressure 140/60 02/06/2020 11:01 AM AIR ROUTE CONTR[employer]LLER Pulse - - Temperature - - Respiratory Rate - - Oxygen Saturation - - Inhaled Oxygen Concentration - - Weight 69.6 kg (153 lb 6.4 oz) 02/06/2020 11:01 AM AIR ROUTE [employer]ER Height 154.9 cm (5' 1 ) 02/06/2020 11:01 AM [employer] ROUTE [employer]ER Body Mass Index 28.98 02/06/2020 11:01 AM AIR ROUTE [employer]ER Plan of Treatment Not on file Care Teams Guide Rail Cleaner Relationship Specialty Start Date End Date Teofilo Harris MD PCP - OBGYN 12/29/07 Barrett Patel MD PCP - General 07/19/17
== END 2024-04-28 10:11 | disposition home or self-care (01) ==
LOC: ANHIMG 10:12
PROVIDERS: PCP Internal Medicine; Visit Provider Internal Medicine
DX: Z12.31 Encounter for screening mammogram for malignant neoplasm of breast (principal)
CPT/HCPCS: 77063; 77067

== ENCOUNTER 2024-06-28 08:22 | Emergency (ER) | payer MEDICARE, SELFPAY ==
--- NOTE | 2024-06-28 08:32 | ED.WOUNDLAC ---
HPI - Wound/Laceration General Chief Complaint: Wound/Laceration Stated Complaint: torn skin right hand Time Seen by Provider: 06/28/24 08:26 Source: patient Mode of arrival: ambulatory Limitations: no limitations History of Present Illness HPI narrative: Renae is an 83-year-old female patient presenting to the clinic today with complaints of a skin tear to the right hand. She reports she was letting her dog out last night when the dog was on the leash and rammed her right hand into the railing. Has a skin tear to the top of the right hand. She does take Eliquis. Placed bleed stop powder over the wound. Bleeding is controlled. Related Data Home Medications ?Medication ?Instructions ?Recorded ?Confirmed ?Last Taken ?Type amlodipine 10 mg tablet 10 mg PO DAILY 11/15/22 06/28/24 Unknown History apixaban 5 mg tablet (Eliquis) 5 mg PO BID 11/15/22 06/28/24 Unknown History carvedilol 6.25 mg tablet 6.25 mg PO DAILY 11/15/22 06/28/24 Unknown History furosemide 20 mg tablet 20 mg PO DAILY 11/15/22 06/28/24 Unknown History levothyroxine 100 mcg tablet 100 mcg PO DAILY 11/15/22 06/28/24 Unknown History rosuvastatin 40 mg tablet 40 mg PO DAILY 11/15/22 06/28/24 Unknown History irbesartan 150 mg tablet 150 mg PO DAILY 04/14/23 06/28/24 Unknown History estradiol 0.01% (0.1 mg/gram) 1 g vaginal HS 03/16/24 06/28/24 Unknown History vaginal cream carvedilol 12.5 mg tablet 12.5 mg PO DAILY 06/28/24 06/28/24 Unknown History spironolactone 25 mg tablet 25 mg PO DAILY 06/28/24 06/28/24 Unknown History Allergies Allergy/AdvReac Type Severity Reaction Status Date / Time ciprofloxacin (From Cipro) Allergy Other Verified 06/28/24 08:30 clindamycin (From Cleocin) Allergy Unknown Verified 06/28/24 08:30 demeclocycline (From Allergy Unknown Verified 06/28/24 08:30 Declomycin) Penicillins Allergy Unknown Verified 06/28/24 08:30 Sulfa (Sulfonamide Allergy Unknown Verified 06/28/24 08:30 Antibiotics) Review of Systems Review of Systems: Pertinent positives per HPI. Patient denies any fever, chills, rash, headache, visual changes, dizziness, cough, runny nose, sore throat, shortness of breath, chest pain, palpitations, nausea, vomiting, diarrhea, constipation, abdominal pain, or any urinary issues. [facility] Past Medical History Medical History CAD (coronary artery disease) Arthritis Spinal stenosis Hypothyroidism GERD (gastroesophageal reflux disease) Hyperlipidemia Hypertension Atrial fibrillation Urinary tract infection Surgical History Surgical History H/O arthroscopy of right knee History of hysterectomy History of tonsillectomy Social History Social History Smoking status: Never smoker Alcohol intake: never Substance use: never Substance use type: does not use Occupation/Education: retired Gender identity (if verbalized by the patient): Female Comments At the time of my signature, I reviewed and agree with the nursing past medical, surgical, social, and family history. There is no relevant family history pertinent to the patient complaint. Exam Narrative: General: Well-developed, well nourished, in no apparent distress Head: Normocephalic, atraumatic. Cardio: Regular rate and rhythm, s1 and s2 normal, no murmur appreciated. Resp: Clear to auscultation bilaterally, no rhonchi, rales, wheezing or rubs. Integumentary: [place], warm, and dry, 2cm x 1.5 cm skin tear flap laceration to the right dorsal hand Course Course Emergency Course: Portions of this record may have been created with voice recognition software. Level of Care: Express Care Visit Vital Signs Vital signs: Vital Signs Temperature 37.0 C 06/28/24 08:38 Pulse Rate 67 06/28/24 08:38 Respiratory Rate 14 06/28/24 08:38 Blood Pressure 152/51 H 06/28/24 08:38 Pulse Oximetry 100 06/28/24 08:38 Oxygen Delivery Room Air 06/28/24 08:38 Temperature 37.0 C 06/28/24 08:38 Pulse Rate 67 06/28/24 08:38 Respiratory Rate 14 06/28/24 08:38 Blood Pressure 152/51 H 06/28/24 08:38 Pulse Oximetry 100 06/28/24 08:38 Oxygen Delivery Room Air 06/28/24 08:38 Vital signs reviewed MDM - Wound/Laceration MDM Narrative Medical decision making narrative: At the time of visit patient is resting comfortably on the exam table. Patient appears to be nontoxic. Plan: Patient has a skin tear. Steri-Strips were used to assist with wound closure. Supportive measures were discussed with the patient and they voiced understanding discharge instructions and agrees to treatment plan. Return precautions reviewed Differential Diagnosis Differential diagnosis: Likely laceration, abscess, abrasion, avulsion of skin and other (Skin tear) Discharge Plan Discharge Clinical Impression: Skin tear of hand without complication Qualifiers: Encounter type: initial encounter Laterality: right Qualified Code(s): S61.411A - Laceration without foreign body of right hand, initial encounter Patient Disposition: Home Condition: Stable Instructions: Antibiotic Form, Skin Tear (ED) Additional Instructions: Tdap was given in the clinic today. Leave bandage on for 24 hours then may remove and apply band aide covering as needed. Keep wound clean and dry Keep Steri-Strips in place as long as possible Watch for signs and symptoms of infection- redness, streaking, swelling, purulent discharge, or increase in pain. Follow up with your PCP in 2 to 3 days for a wound check Patient Language: Guamanian Prescriptions: No Action carvedilol 6.25 mg tablet 6.25 mg PO DAILY levothyroxine 100 mcg tablet 100 mcg PO DAILY amlodipine 10 mg tablet 10 mg PO DAILY furosemide 20 mg tablet 20 mg PO DAILY rosuvastatin 40 mg tablet 40 mg PO DAILY Eliquis 5 mg tablet 5 mg PO BID irbesartan 150 mg tablet 150 mg PO DAILY estradiol 0.01 % (0.1 mg/gram) cream 1 g VAGINAL HS carvedilol 12.5 mg tablet 12.5 mg PO DAILY spironolactone 25 mg tablet 25 mg PO DAILY Follow-up/Referrals: ,Barrett Schuster MD [Primary Care Provider] - Time of Disposition: 08:54 Quality NIHSS Nursing Documentation ED NIHSS nursing documentation: reviewed/agree
[2024-06-28 08:38] VITALS: BP 152/51; PULSE 67; RESP 14; TEMP 37; O2SAT 100
[2024-06-28] MEDS: TETANUS,DIPHTHERIA,AC PERTUSSIS ADULT (0.5 ML) BOOSTRIX IM (09:06)
== END 2024-06-28 09:10 | disposition home or self-care (01) ==
PROVIDERS: Emergency Provider Nurse Practitioner Family; PCP Internal Medicine
DX: S61.411A Laceration without foreign body of right hand, initial encounter (principal); W22.8XXA Striking against or struck by other objects, initial encounter; Z23 Encounter for immunization; I25.10 Atherosclerotic heart disease of native coronary artery without angina pectoris; I10 Essential (primary) hypertension; I48.91 Unspecified atrial fibrillation; E78.5 Hyperlipidemia, unspecified; E03.9 Hypothyroidism, unspecified; K21.9 Gastro-esophageal reflux disease without esophagitis; M19.90 Unspecified osteoarthritis, unspecified site; M48.00 Spinal stenosis, site unspecified; Z79.01 Long term (current) use of anticoagulants
CPT/HCPCS: 90471; 90715; 99212; G0463